=== PATIENT | female | born 1950 | race Caucasian/White ===

== ENCOUNTER → 2018-06-23 | Outpatient (CLI) | payer MEDICARE | LOC: GMAM 11:20 | PROVIDERS: ATTEND Family Medicine | DX: E53.8 Deficiency of other specified B group vitamins (principal); E55.9 Vitamin D deficiency, unspecified ==

== ENCOUNTER → 2018-08-01 | Outpatient (CLI) | payer MEDICARE ==
--- NOTE | 2018-08-01 16:55 | CT ---
EXAM DESCRIPTION: Abdomen/Pelvis w/wo Contrast: Computed Tomography. CLINICAL HISTORY: K42.9. History of previous umbilical hernia repair. Periumbilical pain. COMPARISON: CT scan of the abdomen and pelvis without contrast 08/28/2015. TECHNIQUE: Spiral-axial scans at 5 x 5 mm intervals through the abdomen and pelvis before and after Optiray 320 nonionic IV contrast. No oral contrast. Coronal and sagittal 2.0 mm reconstructions. 5 x 5 mm Delayed helical-axial scans, liver through the pubic symphysis. No adverse reactions. Total Exam DLP 3400.92 mGy - cm. This exam was performed according to our departmental CT dose-optimization program which includes automated exposure control, adjustment of the mA and/or kV according to patient size and/or use of iterative reconstruction technique; to reduce radiation dose to as low as reasonably achievable (ALARA). FINDINGS: Lung bases and pleura: Scarring in the inferior lingula. Liver, Stomach, Spleen, Adrenal Glands: Long axis of the right lobe is 19.5 cm. No focal lesions. Minimal dilation of the ducts in the left lobe the left hepatic duct. Stomach and duodenum slightly distended by fluid. Other solid organs are unremarkable. Pancreas, Gallbladder, Ducts: Surgical clips gallbladder fossa. No fluid. Minimal dilation of the common bile duct. Pancreatic duct not dilated with no focal lesions. Kidneys and Ureters: Decreased size of the left kidney and partial cortical thinning. Nonobstructing 3 mm stone in the inferior collecting system of the left kidney. Size of the right kidney is unremarkable. No radiodense stones in, or enlargement of the bilateral ureters. Mesentery: No abnormal density. Aorta: Mild to moderate atherosclerotic calcification. Small Bowel: Negative. Terminal Ileum/Cecum: Unremarkable. Appendix not seen. Normal density of the surrounding fat. Colon: Diffuse fecal material involving almost entire length of the colon. Minimal redundancy of the sigmoid. No complications. Pelvic Organs: Limitation of resolution due to artifact from right total hip arthroplasty. Prostate gland abutting the urinary bladder and the seminal vesicles. No free fluid. Spine and Bony Pelvis: Posterior transpedicular fusion bilaterally L3-L5. Spondylosis L2-3. Levoscoliosis lumbar spine. Diffuse spondylosis included thoracic spine. Moderate arthrosis left hip joint. Minimal widening and air density in the left SI joint. Total hip arthroplasty on the right. Abdominal Wall/Back Soft Tissues: Stable umbilical diastases since the prior study containing no bowel. Approximately 1 cm above the umbilicus is a small intramuscular defect to the right of midline but not containing bowel. Stable since the prior study. IMPRESSION: 1. Umbilical diastases not containing bowel. Small defect 1 cm superior to the right of midline. These findings are stable since the prior study 2015. 2. Post cholecystectomy with no fluid. Dilation of the common bile duct and predominantly left intrahepatic ducts also seen on the prior study. Pancreas is negative. 3. Decreased size of the left kidney with cortical thinning predominantly in the mid and upper pole which was not seen on the prior study. Correlate with clinical history. Stable 3 mm stone inferior left kidney nonobstructing. Right kidney is unremarkable. 4. Posterior bilateral lumbar fusion L3-L5 since the prior study. Right total hip arthroplasty since the prior study. Electronically signed by: Landry Collins MD 08/01/2018 4:53 PM [facility]
== END ==
LOC: LAB.O 11:45
PROVIDERS: ATTEND Surgery
DX: K42.9 Umbilical hernia without obstruction or gangrene (principal); N20.0 Calculus of kidney; Z96.641 Presence of right artificial hip joint; Z90.49 Acquired absence of other specified parts of digestive tract; Z98.1 Arthrodesis status

== ENCOUNTER → 2018-10-06 | Outpatient (CLI) | payer MEDICARE | LOC: GMAM 14:11 | PROVIDERS: ATTEND Family Medicine | DX: E53.8 Deficiency of other specified B group vitamins (principal); E55.9 Vitamin D deficiency, unspecified ==

== ENCOUNTER → 2018-11-08 | Outpatient (CLI) | payer MEDICARE | LOC: LAB.O 14:19 | PROVIDERS: ATTEND Urology | DX: R31.0 Gross hematuria (principal) ==

== ENCOUNTER → 2018-11-10 | Outpatient (CLI) | payer MEDICARE ==
--- NOTE | 2018-11-10 16:48 | CT ---
EXAM DESCRIPTION: CTA Chest: Computed Tomography. CLINICAL HISTORY: PULMONARY EMBOLUS COMPARISON: CT scan of the abdomen and pelvis with IV contrast on the same visit. TECHNIQUE: Spiral-axial scans at 5 x 5 mm intervals through the pulmonary arteries and chest after bolus infusion of IV contrast. Coronal and sagittal 2.0 Mm reconstructions. 10.0 mm PE oblique 3-D reformatted images. No adverse reactions. This exam was performed according to our departmental CT dose-optimization program which includes automated exposure control, adjustment of the mA and/or kV according to patient size and/or use of iterative reconstruction technique; to reduce radiation dose to as low as reasonably achievable (ALARA). FINDINGS: Heart and great vessels: Contrast demonstrates the pulmonary artery system from the main pulmonary artery to the distal bilateral segmental pulmonary artery branches with no filling defects. The distal pulmonary artery branches bilaterally are symmetric in caliber. Smooth contour of the aorta with no aneurysm or stenosis. Proximal brachiocephalic vessels are unremarkable. Small coronary artery calcifications are noted. Lung and airways: A tree-in-bud pattern is noted in the base of the right upper lobe, and right middle lobe. No blebs or bulla. Pleural parenchymal scarring in the left lower lobe and inferior lingula. No abnormal nodules or masses bilaterally. No focal acute infiltrates. Pleura: Thickening on the left including lateral to the left upper lobe. No effusion bilaterally or pneumothorax. Mediastinum and elena: Minimal artifact streaking caused by dense contrast in the great vessels. No significantly enlarged lymph nodes and no soft tissue masses. No calcifications. Soft tissues of the chest wall, neck base, and axilla: Normal sized lymph nodes. No soft tissue masses. Small thyroid gland. Osseous structures: Decreased bone density. Thoracic dextroscoliosis. Multiple levels of spondylosis. Left first rib is either rudimentary or has been previously resected posteriorly at the level of the medial clavicle. No other rib abnormalities are noted. IMPRESSION: 1. Minimal tree-in-bud pattern noted in the periphery of the right upper lobe and right middle lobe related to a variety of etiologies but most likely prior viral pneumonitis. Less likely related to fungal or mycobacterial pneumonia aspiration, or sarcoidosis. 2. Asymmetric pleural thickening more on the left than the right with no effusion. Electronically signed by: Landry Collins MD 11/10/2018 4:45 PM CDT
--- NOTE | 2018-11-10 17:08 | CT ---
EXAM DESCRIPTION: Abdomen/Pelvis w/wo Contrast: Computed Tomography. CLINICAL HISTORY: GROSS HEMATURIA COMPARISON: CTA of the chest on the same visit. CT Scan abdomen and pelvis with and without IV contrast 08/01/2018. TECHNIQUE: Spiral-axial scans at 5 x 5 mm intervals through the abdomen and pelvis before and after 100 mL Optiray 320 nonionic IV contrast. No oral contrast. Coronal and sagittal 2.0 mm reconstructions. 5 mm Delayed helical-axial scans, liver through the pubic symphysis. No adverse reactions. Total Exam DLP 2456 mGy - cm. This exam was performed according to our departmental CT dose-optimization program which includes automated exposure control, adjustment of the mA and/or kV according to patient size and/or use of iterative reconstruction technique; to reduce radiation dose to as low as reasonably achievable (ALARA). FINDINGS: Liver, Stomach, Spleen, Adrenal Glands: Distended distal hepatic ducts but otherwise negative. Pancreas, Gallbladder, Ducts: Surgical clips in the gallbladder fossa with no fluid. Common bile duct distended. Pancreas unremarkable. Minimal duodenal distention by fluid.. Kidneys and Ureters: 2.6 mm nonobstructing radiodense stone in the inferior collecting system of the left kidney. Bilateral cortical thinning more on the left than the right with more lobulation of the renal capsule on the left than the right. Right kidney is larger. No hydronephrosis bilaterally. Minimal perinephric stranding bilaterally symmetric. Distal ureters bilaterally do not fill with IV contrast but are normal caliber. Mesentery: No stranding or fascial thickening. No free air or ascites. Aorta: Minimal atherosclerotic calcification and normal caliber and no periaortic mass. Small Bowel: Negative. Terminal Ileum/Cecum: Unremarkable. Appendix not seen. Colon: Moderate amount of fecal material throughout the colon mostly ascending colon and distally. Minimal redundancy of the sigmoid colon. Pelvic Organs: Vaginal cuff unremarkable. Stable. No radiodense stones in the urinary bladder. Delayed images were not obtained. Spine and Bony Pelvis: Posterior fusion construct L3-L5. Stable. Spondylosis lower thoracic and upper lumbar spine with levoscoliosis. Air density in the bilateral SI joints with bilateral facets showing sclerosis and subchondral radiolucencies more on the left. Right total hip arthroplasty stable since the prior study. Arthrosis in the left hip joint unchanged. Abdominal Wall/Back Soft Tissues: Diastases of the umbilicus is unchanged since the prior study. Again noted is small defect in the anterior abdominal wall raphe to the right of midline just above the umbilicus with no mesenteric or bowel herniation. IMPRESSION: 1. Again noted is cortical atrophy of the left kidney and decreased size compared to the right kidney. Stable nonobstructing less than 3 mm stone in the inferior left kidney with no hydronephrosis bilaterally. Ureters unremarkable. No radiodense stones in the urinary bladder. No delayed images were obtained. Consider cystogram or cystoscopy to evaluate bladder mucosa in light of this history. 2. Stable appearance of the abdominal wall, thoracic and lumbar spine since the prior study. Electronically signed by: Landry Collins MD 11/10/2018 5:05 PM CDT
== END ==
LOC: CT 08:30
PROVIDERS: ATTEND Family Medicine
DX: R06.02 Shortness of breath (principal); J92.9 Pleural plaque without asbestos; N20.0 Calculus of kidney; R31.0 Gross hematuria; R10.11 Right upper quadrant pain

== ENCOUNTER 2019-04-12 14:26 | Inpatient (IN) | payer MEDICARE ==
--- NOTE | 2019-04-12 14:27 | HP ---
SUPERVISING PHYSICIAN: Manolo Dempsey M.D. CHIEF COMPLAINT: Nausea, vomiting and diarrhea. HISTORY OF PRESENT ILLNESS: This is a 68 year-old female patient who has had about 5 to 6 months of chronic abdominal pain. She was actually diagnosed with gastroparesis by her GI doctor, Dr. Prieto in [place]. He had actually put her on some Reglan. Over the last week or so she has had nausea, vomiting and diarrhea that has worsened. She was in her primary care physician's office earlier this week to have an evaluation. At that time he put her on mag citrate which usually has helped in the past. She was unable to tolerate anything orally. She was unable to keep the mag citrate down.. She saw Dr. Encarnacion today in the office and she continued to have nausea, vomiting and diarrhea that has worsened since 2 days ago and he called for direct admission to the hospital. The patient was a direct admission from Dr. Encarnacion's office for gastroparesis failed outpatient therapy with nausea, vomiting and diarrhea secondary to gastroparesis. It is to be noted that she was also treated for a urinary tract infection in February and has a history of recurrent urinary tract infections. PAST MEDICAL HISTORY: 1. Coronary artery disease. 2. Hyperlipidemia. 3. Hypertension on medications. 4. Chronic obstructive pulmonary disease. 5. Recurrent urinary tract infections. 6. Cerebrovascular accident with mild right sided weakness in 2009. 7. Seizure disorder although the patient has had no seizure activity for many years. 8. Remote history of diabetes mellitus type 2, although she is no longer on medications. 9. Gastroparesis diagnosed about 6 months ago. PAST SURGICAL HISTORY: 1. Appendectomy. 2. Cholecystectomy. 3. Hysterectomy. 4. Left total knee arthroplasty. 5. Bladder suspension. 6. Bilateral cataract removal. 7. Parotid gland tumor removal. 8. Three right hip surgeries after a fracture. 9. Spinal surgery. 10. Left rib removal due to thoracic outlet syndrome. OUTPATIENT MEDICATIONS: Per the EMR and awaiting verification. ALLERGIES: CODEINE, CELEBREX AND PENICILLIN. FAMILY HISTORY: Positive for colon cancer, prostate cancer, hypertension, type 2 diabetes, coronary artery disease, pancreatic cancer, breast cancer, seizure disorder and hypothyroidism. SOCIAL HISTORY: She is . She has 4 children. She lives in [place]. She has a past history of cigarette smoking but quit in 1984. She denies any ETOH or illicit drug use. REVIEW OF SYSTEMS: GENERAL: Positive for fatigue. Negative for chills or fever. RESPIRATORY: Negative for coughing, wheezing or shortness of breath. CARDIOVASCULAR: Negative for chest pain, palpitations or tachycardia. GASTROINTESTINAL: As per History of Present Illness. MUSCULOSKELETAL: Negative for arthralgias, myalgias or back pain. INTEGUMENT: Negative for lesions or rashes. GENITOURINARY: Negative for hematuria, dysuria,, or polyuria, although she is positive for recurrent and frequent UTIs. NEUROLOGIC: Positive for seizure disorder but has not had a seizure in many years. Negative for headaches or dizziness. PHYSICAL EXAMINATION: VITAL SIGNS: Temperature 98.6, heart rate 54, blood pressure 121/76, respiratory rate 16, O2 sat 96% on room air. GENERAL: This is a 68 year-old female who is lying in her hospital bed. She is in no acute distress. HEENT: Normocephalic and atraumatic. Pupils are equal and reactive. Oropharynx is clear. RESPIRATORY: Essentially clear to auscultation bilaterally. CHEST: There is equal rise and fall of the chest with inspiration and expiration. CARDIOVASCULAR: Regular rate and rhythm. GASTROINTESTINAL: Abdomen is soft. She has mild diffuse tenderness to the epigastric and left upper quadrant areas. It is moderately tender to the right upper quadrant. Bowel sounds are positive. EXTREMITIES: No clubbing, cyanosis or edema. NEUROLOGIC: She is awake, alert and oriented times three. Cranial nerves II- XII are grossly intact. LABORATORY: WBCs are 7.7 with hemoglobin 10.5, hematocrit 31.6. Electrolytes are basically within normal limits. Alkaline phosphatase 34, serum total protein 4.6, albumin 1.9. Urinalysis shows moderate urine blood, large amount of urine leukocyte esterase, greater than 100 urine WBCs and 4+ urine bacteria. Urine culture is pending. RADIOLOGY: There is no radiology to report at this time. ASSESSMENT: 1. Gastroparesis failed outpatient therapy. 2. Nausea, vomiting and diarrhea secondary to #1. 3. Urinary tract infection, recurrent. She was treated for a urinary tract infection in February. 4. Hypertension controlled on medications. 5. Chronic obstructive pulmonary disease. 6. Cerebrovascular accident in 2009 with residual mild right sided weakness. 7. Remote history of seizure disorder. PLAN: I have admitted the patient to the hospital. I will place her on bowel rest and give her gentle IV fluids overnight. Will do stool studies for any diarrhea. Rocephin will be started for urinary tract infection and will monitor cultures. I have also given her IV Reglan and will increase her Reglan in the morning if she tolerates the lower dose. I will repeat her labs in the morning as well as an abdominal x-ray. She had a CT of her abdomen several days ago and I will do a sonogram in the morning. I may consult general surgery for recommendations of her care. I have ordered Albuterol nebulizer treatments as needed. Will continue to monitor closely and follow as needed. #[id number] [facility]
[2019-04-12] MEDS ORDERED: SODIUM CHLORIDE 0.9% (FLUSH) 10 ML SYG IV PRN (15:13)
[2019-04-12] MEDS ORDERED: ONDANSETRON INJ 4 MG/2 ML VIAL IV PRN (15:13)
[2019-04-12] MEDS ORDERED: SODIUM CHLORIDE 0.9% 1000ML 1,000 ML IVS PRN (15:13)
[2019-04-12] MEDS ORDERED: IV SET AND CAP CHANGE INJ INJ SCH (15:30)
[2019-04-12] MEDS ORDERED: METOCLOPRAMIDE HCL INJ 10 MG/2 ML VIAL IV SCH (15:30)
[2019-04-12] MEDS: PANTOPRAZOLE SODIUM IV 40 MG VIAL IV SCH (16:45)
[2019-04-12] MEDS ORDERED: HALOPERIDOL LACTATE INJ 5 MG/ML VIAL IM PRN (19:18)
[2019-04-12] MEDS ORDERED: ALBUTEROL SULFATE 2.5 MG/3 ML VIAL NEB PRN (19:54)
[2019-04-12] MEDS: METOCLOPRAMIDE HCL INJ 10 MG/2 ML VIAL IV SCH (20:32)
[2019-04-12] MEDS ORDERED: SODIUM CHL 0.9% 50ML MIN-BAG+ 50 ML IVPB ONE (20:35)
[2019-04-12] MEDS ORDERED: TOPIRAMATE 25 MG TAB ONE (20:35)
[2019-04-12] MEDS ORDERED: cefTRIAXone SODIUM 1 GM VIAL ONE (20:36)
[2019-04-12] MEDS ORDERED: OXYBUTYNIN CL 5 MG TAB ONE (20:36)
[2019-04-12] MEDS ORDERED: GABAPENTIN 300 MG CAP ONE (20:36)
[2019-04-12] MEDS: cefTRIAXone SODIUM 1 GM in SODIUM CHL 0.9% 50ML MIN-BAG+ 50 ML IVPB SCH (20:40)
[2019-04-12] MEDS: METOPROLOL TARTRATE 25 MG TAB PO SCH (20:40)
[2019-04-12] MEDS: GABAPENTIN 600 MG PO SCH (20:41)
[2019-04-12] MEDS: OXYBUTYNIN 10 MG PO SCH (20:42)
[2019-04-12] MEDS: TOPIRAMATE 150 MG PO SCH (20:44)
[2019-04-12] MEDS: SODIUM CHLORIDE 0.9% (FLUSH) 10 ML SYG IV SCH (20:47)
[2019-04-12] MEDS: MORPHINE SULFATE INJ 10 MG/ML VIAL IV PRN (20:53)
[2019-04-12] MEDS: KCL 20MEQ/D5 1/2NS 1,000 ML IVS PRN (21:17)
[2019-04-13] MEDS: MORPHINE SULFATE INJ 10 MG/ML VIAL IV PRN ×5 (00:51→21:18)
[2019-04-13] MEDS: METOCLOPRAMIDE HCL INJ 10 MG/2 ML VIAL IV SCH ×4 (01:40→19:41)
[2019-04-13] MEDS: KCL 20MEQ/D5 1/2NS 1,000 ML IVS PRN ×3 (05:21→22:53)
[2019-04-13] MEDS: PANTOPRAZOLE SODIUM IV 40 MG VIAL IV SCH (06:38)
--- NOTE | 2019-04-13 06:43 | RAD ---
EXAM: XR Abdomen, 1 View CLINICAL HISTORY: The patient is 68 years old and is Female; n/v TECHNIQUE: Frontal supine view of the abdomen/pelvis. COMPARISON: No relevant prior studies available. FINDINGS: GASTROINTESTINAL TRACT: Distal stool and air are present. Minimal gaseous distention of the bowel within the right abdomen is noted. There is a relative paucity of small bowel gas. No abnormal calcifications or soft tissue masses are seen. BONES/JOINTS: Postsurgical change of the lower lumbar spine is present. Mild degenerative change of the bones is noted. A right hip prosthesis is partially visualized. IMPRESSION: 1. Nonobstructive, nonspecific bowel gas pattern. 2. Relative paucity of small bowel gas which may be secondary to incomplete distention versus fluid-filled loops of bowel. Electronically signed by: Irene Vaughan MD 04/13/2019 6:42 AM CDT
[2019-04-13] MEDS ORDERED: TOPIRAMATE 25 MG TAB ONE (09:00)
[2019-04-13] MEDS ORDERED: FUROSEMIDE 40 MG TAB ONE (09:00)
[2019-04-13] MEDS ORDERED: GABAPENTIN 300 MG CAP ONE (09:00)
--- NOTE | 2019-04-13 09:00 | US ---
EXAM DESCRIPTION: Abdomen,Complete: Ultrasound. CLINICAL HISTORY: abd pain COMPARISON: CT abdomen and pelvis July 2018. TECHNIQUE: Transabdominal scanning: grayscale and Doppler modes.. Technically difficult study due to patient body habitus. FINDINGS: Gallbladder: Cholecystectomy. No fluid in the gallbladder fossa. Nontender with transducer pressure. Common bile duct: 6 mm borderline dilated. Liver: 14.8 cm long axis right lobe. Normal portal vein caliber and hepatopedal flow. No intrahepatic duct dilation. Smooth capsule with no ascites. Pancreas: Normal echogenicity. Duct not seen.. Abdominal aorta: Normal caliber from the proximal segment to the distal bifurcation. IVC: visualized; normal caliber. Spleen normal echogenicity; long axis measurement is 13.3 cm. Right kidney: 10.3 cm long axis. Mid renal cortical thickness 12 mm., Normal echogenicity. No hydronephrosis, no perirenal fluid and no echogenic stones. Left kidney: 8.6 cm long axis. Mid renal cortical thickness 10 mm. Increased cortical echogenicity greater than the liver. Lobulated capsule. No hydronephrosis, no echogenic stones, and no perirenal fluid. 9 mm cyst on the cortex. IMPRESSION: 1. Liver is unremarkable. Common bile duct normal caliber postcholecystectomy. Pancreas negative. Spleen upper normal limits with normal echogenicity. No ascites. 2. Left kidney smaller with thin echogenic cortex and lobular capsule which could be related to intrinsic disease. Right kidney with thin cortex otherwise unremarkable. Electronically signed by: Landry Collins MD 04/13/2019 8:58 AM CDT
[2019-04-13] MEDS ORDERED: CLOPIDOGREL 75 MG TAB ONE (09:01)
[2019-04-13] MEDS ORDERED: METOPROLOL SUCCINATE XL 25 MG TAB PO ONE (09:01)
[2019-04-13] MEDS ORDERED: OXYBUTYNIN CL 5 MG TAB ONE (09:01)
[2019-04-13] MEDS: FUROSEMIDE 40 MG TAB PO SCH (09:12)
[2019-04-13] MEDS: CLOPIDOGREL 75 MG TAB PO SCH (09:12)
[2019-04-13] MEDS: TOPIRAMATE 25 MG TAB PO SCH ×2 (09:13→20:51)
[2019-04-13] MEDS: SODIUM CHLORIDE 0.9% (FLUSH) 10 ML SYG IV SCH ×2 (09:13→20:51)
[2019-04-13] MEDS: GABAPENTIN 300 MG CAP PO SCH ×4 (09:13→20:50)
[2019-04-13] MEDS: TOLTERODINE TARTRATE ER 4 MG CAP PO SCH (09:21)
[2019-04-13] MEDS: METOPROLOL TARTRATE 25 MG TAB PO SCH ×2 (09:21→20:49)
[2019-04-13] MEDS: POTASSIUM GLUCONATE 595 MG PO SCH (09:22)
[2019-04-13] MEDS: TOPIRAMATE 150 MG PO SCH (09:30)
[2019-04-13] MEDS: GABAPENTIN 600 MG PO SCH (09:30)
[2019-04-13] MEDS: OXYBUTYNIN 10 MG PO SCH (09:30)
--- NOTE | 2019-04-13 11:48 | CT ---
EXAM DESCRIPTION: Abdomen/Pelvis w/wo Contrast: Computed Tomography. CLINICAL HISTORY: gastroparesis pain COMPARISON: Abdominal ultrasound and abdominal radiograph on this visit. Abdominal pelvic CT scan with IV contrast 11/10/2018. TECHNIQUE: Spiral-axial scans at 5 x 5 mm intervals through the abdomen and pelvis before and after 85 mL Optiray 320 nonionic IV contrast. No oral contrast. Coronal and sagittal 2.0 mm reconstructions. 5 mm Delayed helical-axial scans, liver through the pubic symphysis. No adverse reactions. Total Exam DLP 3534.38 mGy - cm. This exam was performed according to our departmental CT dose-optimization program which includes automated exposure control, adjustment of the mA and/or kV according to patient size and/or use of iterative reconstruction technique; to reduce radiation dose to as low as reasonably achievable (ALARA). FINDINGS: Lung bases and pleura: Pleural parenchymal scarring left base. Stable. Liver, Stomach, Spleen, Adrenal Glands: Dilated intrahepatic biliary ducts slightly more since the prior study. No focal lesions. Mild enlargement of the right lobe of the liver is stable. Minimal distention of the stomach. Surgical clip near the gastroesophageal junction was also seen previously. Pancreas, Gallbladder, Ducts: Surgical clips in the gallbladder fossa. No fluid. Common bile duct 8 mm which is enlarged since the prior study. Pancreas negative. Kidneys and Ureters: Atrophy and lobulation of the left kidney which is smaller than the right kidney also with thinner cortex. 3 mm radiodense stone in the inferior kidney slightly enlarged since the prior study. No hydronephrosis. Right kidney and ureters unremarkable. Mesentery: No stranding free air or free fluid. Aorta: Moderate atherosclerotic calcifications. Small Bowel: Minimal fluid and air without distention. Terminal Ileum/Cecum: Normal caliber and appendix not seen. Colon: Fluid in the ascending colon and minimal gas and fluid in the remainder of the colon. Small diverticula in the sigmoid descending colon junction. No complications. Pelvic Organs: Streak artifact from right hip arthroplasty. No free fluid. No radiodense stones in the urinary bladder. Spine and Bony Pelvis: Marked levoscoliosis with posterior fusion construct L3-L5, bilateral pedicle screws and unilateral connecting rods. No complications. Spondylosis in the upper lumbar spine and multiple levels of the thoracic spine with ankylosis. Arthrosis in the bilateral SI joints more on the left with degenerative air in the joint space. Right total hip arthroplasty with no bony complications in the acetabulum.. Abdominal Wall/Back Soft Tissues: Diastases at the umbilicus not containing bowel. Stable since the prior study. IMPRESSION: 1. Slight increased distention of the intrahepatic biliary ducts and the common bile duct since the prior study. No ascites. No abdominal or pelvic mass. 2. Stable left renal atrophy and parenchymal disease. 3 mm stone in the inferior collecting system is enlarged. No hydronephrosis. 3. Diverticulosis in the distal colon stable. Spondylosis, lumbar fusion hardware and right total hip arthroplasty that is visualized along with right acetabulum stable since the prior study. Electronically signed by: Landry Collins MD 04/13/2019 11:46 AM CDT
--- NOTE | 2019-04-13 13:25 | PN ---
SUPERVISING PHYSICIAN: Manolo Dempsey MD DATE: 04/13/19 SUBJECTIVE: The patient is lying in bed. She is asleep. She awakens easily. She has had no diarrhea, no complaints of nausea or vomiting although she still has complaints of right upper quadrant abdominal pain. She denies shortness of breath or chest pain. OBJECTIVE: VITAL SIGNS: Temperature 98.4. Heart rate 65. Blood pressure 100/62. Respiratory rate 17. O2 saturation 94% on room air. RESPIRATORY: Essentially clear to auscultation bilaterally, somewhat diminished at the bases. CARDIAC: Regular rate and rhythm. GASTROINTESTINAL: Abdomen is soft, nondistended. It is moderately tender in the right upper quadrant. Bowel sounds are positive. NEUROLOGIC: Awake, alert and oriented times three. LABORATORY: WBCs 6.5, hemoglobin 9.9, hematocrit 30. Electrolytes are basically within normal limits with the exception of her calcium slightly low at 7.8. AST high at 60. Urine culture is pending. Abdominal x-ray shows 1) Nonobstructive, nonspecific bowel gas pattern. 2) Relative paucity of small bowel gas which may be due to incomplete distention vs fluid-filled loops of bowel. Abdominal ultrasound shows 1) Liver is unremarkable. Common bile duct normal caliber. Post cholecystectomy. Pancreas is negative. Spleen upper normal limits with normal echogenicity. 2) Left kidney smaller with thin echogenic cortex and lobular capsule which could be related to intrinsic disease. Right kidney with thin cortex, otherwise unremarkable. Her CT of the abdomen is pending. All other labs and films have been reviewed via the EMR. ASSESSMENT: 1. Gastroparesis, failed outpatient therapy. 2. Nausea, vomiting and diarrhea, secondary to #1. 3. Urinary tract infection, recurrent. She was treated for a urinary tract infection in February. 4. Hypertension, controlled on medications. 5. Chronic obstructive pulmonary disease without exacerbation. 6. Cerebrovascular accident in 2009 with residual mild right sided weakness. 7. Remote history of seizure disorder. PLAN: We will continue present supportive care. We will continue to monitor her urine cultures. I have consulted Dr. Johnson in regards to her gastroparesis and we will follow his recommendations as far as her diet and treatment plan. I ordered lab and an abdominal x-ray for in the morning. She will need to have close followup with her GI doctor, Dr. Prieto, at some point. We will continue to monitor the patient closely and follow as needed. #[id number] [facility]
[2019-04-13] MEDS ORDERED: SODIUM CHL 0.9% 50ML MIN-BAG+ 50 ML IVPB ONE (19:02)
[2019-04-13] MEDS ORDERED: cefTRIAXone SODIUM 1 GM VIAL ONE (19:03)
[2019-04-13] MEDS: cefTRIAXone SODIUM 1 GM in SODIUM CHL 0.9% 50ML MIN-BAG+ 50 ML IVPB SCH (20:48)
[2019-04-14] MEDS: METOCLOPRAMIDE HCL INJ 10 MG/2 ML VIAL IV SCH ×4 (01:59→19:59)
[2019-04-14] MEDS: MORPHINE SULFATE INJ 10 MG/ML VIAL IV PRN ×3 (05:07→19:03)
[2019-04-14] MEDS: PANTOPRAZOLE SODIUM IV 40 MG VIAL IV SCH (06:32)
[2019-04-14] MEDS: KCL 20MEQ/D5 1/2NS 1,000 ML IVS PRN (06:32)
--- NOTE | 2019-04-14 06:54 | RAD ---
EXAM: XR Abdomen, 2 Views CLINICAL HISTORY: The patient is 68 years old and is Female; abd pain TECHNIQUE: Frontal view of the abdomen/pelvis with upright view of the abdomen. COMPARISON: Abdominal radiograph from 04/13/2019 FINDINGS: LOWER THORAX: The visualized lower lungs are clear. INTRAPERITONEAL SPACE: No obvious free air. GASTROINTESTINAL TRACT: Few air-fluid levels noted in the proximal colon. No significant bowel dilatation visualized to suggest obstruction. ORGANS: Surgical clips visualized projecting over the right upper quadrant, likely related to prior cholecystectomy. Small left intrarenal stone noted. BONES/JOINTS: Moderate thoracolumbar scoliosis. Postsurgical changes of the lower lumbar spine. 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 IMPRESSION: No acute findings. Electronically signed by: Angela Hollins MD 04/14/2019 6:52 AM CDT
[2019-04-14] MEDS: SODIUM CHLORIDE 0.9% (FLUSH) 10 ML SYG IV SCH ×2 (08:42→20:06)
[2019-04-14] MEDS: TOPIRAMATE 25 MG TAB PO SCH ×2 (08:42→19:59)
[2019-04-14] MEDS: GABAPENTIN 300 MG CAP PO SCH ×4 (08:43→19:59)
[2019-04-14] MEDS: METOPROLOL TARTRATE 25 MG TAB PO SCH ×2 (08:43→19:59)
[2019-04-14] MEDS: TOLTERODINE TARTRATE ER 4 MG CAP PO SCH (08:43)
[2019-04-14] MEDS: FUROSEMIDE 40 MG TAB PO SCH (08:43)
[2019-04-14] MEDS: CLOPIDOGREL 75 MG TAB PO SCH (08:44)
[2019-04-14] MEDS: POTASSIUM GLUCONATE 595 MG PO SCH (08:44)
[2019-04-14] MEDS ORDERED: MAGNESIUM SULFATE PREMIX 2GM 2 GM in PREMIX BAG 1 BAG IVPB ONE (11:01)
[2019-04-14] MEDS ORDERED: MAGNESIUM SULFATE PREMIX 2GM 50 ML IVPB ONE (11:09)
--- NOTE | 2019-04-14 18:58 | PN ---
DATE: 04/14/19 SUPERVISING PHYSICIAN: Manolo Dempsey M.D. SUBJECTIVE: The patient is lying in bed. She finished her clear liquid diet earlier today and has had no complaints of nausea, vomiting and diarrhea. No chest pain or shortness of breath. Her is at the bedside. We discussed her diet and recommendations at length as well as her discharge planning. OBJECTIVE: VITAL SIGNS: Temperature 98.7, heart rate 80, blood pressure 130/76, respiratory rate 18, O2 sat 94% on room air. RESPIRATORY: Essentially clear to auscultation bilaterally. CARDIAC: Regular rate and rhythm. GASTROINTESTINAL: Abdomen is soft, nondistended, non-tender. Bowel sounds are positive. NEUROLOGIC: She is awake, alert and oriented times three. LABORATORY: WBCs are 5.1 with hemoglobin and hematocrit that are stable at 11.4 and 35.2. Electrolytes are basically within normal limits with the exception of her magnesium which is slightly low at 1.7, calcium is slightly low at 8. Liver enzymes are within normal limits. Urine culture is pending. Abdominal x-ray shows no acute findings. All other labs and films have been reviewed via the EMR. ASSESSMENT: 1. Gastroparesis, failed outpatient therapy. 2. Nausea, vomiting and diarrhea, secondary to #1. 3. Urinary tract infection, recurrent. She was treated for a urinary tract infection in February. 4. Hypertension, controlled on medications. 5. Chronic obstructive pulmonary disease without exacerbation. 6. Cerebrovascular accident in 2009 with residual mild right sided weakness. 7. Remote history of seizure disorder. PLAN: We will continue present supportive care. I have advanced her diet. She has tolerated her clear liquids and she will have full liquids tonight. Hopefully she can have a bland regular diet in the morning. We discussed her diet at discharge and I have given her some handouts in regard to that diet. I have discontinued her IV fluids. Will continue with her Rocephin and continue to monitor for her urine cultures. I have also given her some magnesium supplementation and I will repeat her lab in the morning. Hopefully she can be discharged tomorrow with close followup with Dr. Encarnacion, her primary care physician, as well as Dr. Prieto, her GI doctor next week. Otherwise will continue to monitor closely and follow as needed. [id number]
[2019-04-14] MEDS ORDERED: SODIUM CHL 0.9% 50ML MIN-BAG+ 50 ML IVPB ONE (18:59)
[2019-04-14] MEDS ORDERED: cefTRIAXone SODIUM 1 GM VIAL ONE (18:59)
[2019-04-14] MEDS: cefTRIAXone SODIUM 1 GM in SODIUM CHL 0.9% 50ML MIN-BAG+ 50 ML IVPB SCH (20:04)
[2019-04-15] MEDS: METOCLOPRAMIDE HCL INJ 10 MG/2 ML VIAL IV SCH ×2 (02:29→08:24)
[2019-04-15] MEDS: PANTOPRAZOLE SODIUM IV 40 MG VIAL IV SCH (05:49)
[2019-04-15] MEDS: TOLTERODINE TARTRATE ER 4 MG CAP PO SCH (08:25)
[2019-04-15] MEDS: GABAPENTIN 300 MG CAP PO SCH (08:25)
[2019-04-15] MEDS: FUROSEMIDE 40 MG TAB PO SCH (08:25)
[2019-04-15] MEDS: CLOPIDOGREL 75 MG TAB PO SCH (08:25)
[2019-04-15] MEDS: TOPIRAMATE 25 MG TAB PO SCH (08:26)
[2019-04-15] MEDS: SODIUM CHLORIDE 0.9% (FLUSH) 10 ML SYG IV SCH (08:26)
[2019-04-15] MEDS: POTASSIUM GLUCONATE 595 MG PO SCH (08:26)
[2019-04-15] MEDS: METOPROLOL TARTRATE 25 MG TAB PO SCH (08:28)
[2019-04-15] MEDS ORDERED: MAGNESIUM SULFATE PREMIX 2GM 2 GM in PREMIX BAG 1 BAG IVPB ONE (08:43)
[2019-04-15] MEDS ORDERED: MAGNESIUM SULFATE PREMIX 2GM 50 ML IVPB ONE (08:50)
[2019-04-15] MEDS ORDERED: HYDROcodone 5MG/APAP 325MG 1 EA TAB PO PRN (09:00)
[2019-04-15 10:10] VITALS: BP 102/61; TEMP 98; O2SAT 97
[2019-04-15] MEDS ORDERED: cefTRIAXone SODIUM 1 GM in SODIUM CHL 0.9% 50ML MIN-BAG+ 50 ML IVPB ONE (10:29)
[2019-04-15] MEDS ORDERED: cefTRIAXone SODIUM 1 GM VIAL ONE (10:55)
[2019-04-15] MEDS ORDERED: SODIUM CHL 0.9% 50ML MIN-BAG+ 50 ML IVPB ONE (10:55)
[2019-04-15] MEDS ORDERED: METOCLOPRAMIDE HCL 5 MG TAB PO SCH (11:30)
--- NOTE | 2019-04-15 21:41 | DS ---
SUPERVISING PHYSICIAN: Manolo Dempsey M.D. DISCHARGE DIAGNOSIS: 1. Gastroparesis, failed outpatient therapy. 2. Nausea, vomiting and diarrhea, secondary to #1 that has resolved. 3. Urinary tract infection, recurrent. She was treated for a urinary tract infection in February. 4. Hypertension, controlled on medications. 5. Chronic obstructive pulmonary disease without exacerbation. 6. Cerebrovascular accident in 2009 with mild residual right sided weakness. 7. Remote history of seizure disorder. HISTORY OF PRESENT ILLNESS: This is a 68 year-old female patient who has had about 5 to 6 months of chronic abdominal pain. She was actually diagnosed with gastroparesis by her GI doctor, Dr. Prieto in [place]. He put her on some Reglan. Over the last week or so she has had nausea, vomiting and diarrhea that has worsened. She saw her primary care physician several times this week for evaluation of the nausea and vomiting. Initially he put her on mag citrate which usually has helped her in the past but she was unable to tolerate anything orally. She was unable to keep the mag citrate down or any of her other medications. She continued to have nausea, vomiting and diarrhea and Dr. Encarnacion wanted her to be directly admitted to the hospital. She was admitted to the hospital for gastroparesis failed outpatient therapy and nausea, vomiting and diarrhea. HOSPITAL COURSE: The patient was admitted to the hospital and put on bowel rest. Labs were drawn and she was given IV fluids. Stool cultures were done. Urinalysis showed she had a urinary tract infection. She was given Rocephin for the UTI. She was also placed on a proton pump inhibitor for ulcer prophylaxis as well as IV Reglan. A CT of the abdomen and sonogram were also obtained as well as consulting Dr. Liam Johnson, general surgeon to rule out any surgical issues. Her nausea and vomiting subsided. Her diet was slowly advanced. She tolerated that without problems. Her home medications were restarted. She also tolerated those without problems. Dr. Johnson saw her and suggested that she follow a gluten free, no added sugar, no processed food diet and actually gave her a handout for those foods. I also talked to her about the diet. We also discussed it at length. She has tolerated her previously mentioned diet as well as her medications. There has been nausea or vomiting for over 36 hours. She will be discharged home today in stable condition with close followup with her primary care physician, Dr. Encarnacion. LABORATORY: White count remains stable between 5.1 and 7.7 with hemoglobin and hematocrit that have stabilized to 11.4 and 35.2. Electrolytes have basically been within normal limits with the exception of her calcium was slightly low at 8 and magnesium was 1.7. She received some supplementation and today it is 1.6, and she has also received supplementation today. AST was elevated at one time up to 60 but today it is 34. Stool for occult blood was positive. Stool culture is pending. Urine culture is pending. She was negative for C- Difficile. Stool also was positive for fecal leukocytes. RADIOLOGY: Initial abdominal x-ray showed: 1. Nonobstructive nonspecific bowel gas pattern. 2. Relative paucity of small bowel gas which may be secondary to incomplete distention versus fluid-filled loops of bowel. Yesterday her abdominal x- ray showed no acute findings. Initial abdominal ultrasound showed: 1. Liver is unremarkable, common bile duct normal caliber post cholecystectomy. Pancreas is negative. Spleen upper normal limits with normal echogenicity. No ascites. 2. Left kidney smaller with thin echogenic cortex and lobular capsule which could be related to intrinsic disease. Right kidney with thin cortex, otherwise unremarkable. Abdomen and pelvis CT showed: 1. Slight increased distention of the intrahepatic biliary duct and the common bile duct since the prior study. No ascites. No abdominal or pelvic mass. 2. Stable left renal atrophy and parenchymal disease. 3 mm stone in the inferior collecting system is enlarged. No hydronephrosis. 3. Diverticulosis in the distal colon that is stable. Spondylosis. Lumbar fusion hardware and right total hip arthroplasty that is visualized along with the right acetabulum, stable since prior study. All other labs and films have been reviewed via the EMR. DISCHARGE PLAN: The patient will be discharged home today in stable condition. She is to resume her previous activity as well as her previous medications. She is to follow the diet as recommended by Dr. Johnson. In addition to her routine medications, including her Reglan, she is to continue with 7 day of Cefdinir for her urinary tract infection. It is recommended that at her followup appointment that her stool culture and urine culture be reviewed. She has a followup appointment with Dr. Benigno Encarnacion on 04/17/19 at 2:45 PM. She is to return to the hospital or call Dr. Encarnacion's office for any problems or complications. DISCHARGE MEDICATIONS: 1. Potassium gluconate. 2. Plavix. 3. Furosemide. 4. Dexilant. 5. Fenofibrate. 6. [place]. 7. Gabapentin. 8. Oxybutynin. 9. Topamax. 10. Diclofenac. 11. Metoprolol. 12. Cefdinir. 13. Reglan. [facility][id number]
== END 2019-04-15 11:50 | disposition home or self-care (01) | DRG 392 ==
LOC: MS 14:26
PROVIDERS: ADMIT Nurse Practitioner Acute Care; ATTEND Nurse Practitioner Acute Care
PROC: BW2110Z Computerized Tomography (CT Scan) of Abdomen and Pelvis using Low Osmolar Contrast, Unenhanced and Enhanced (ICD-10-PCS; principal; 2019-04-13)
DX: K31.84 Gastroparesis (principal); N39.0 Urinary tract infection, site not specified; I69.351 Hemiplegia and hemiparesis following cerebral infarction affecting right dominant side; E83.42 Hypomagnesemia; I10 Essential (primary) hypertension; J44.9 Chronic obstructive pulmonary disease, unspecified; G40.909 Epilepsy, unspecified, not intractable, without status epilepticus; I25.10 Atherosclerotic heart disease of native coronary artery without angina pectoris; E78.5 Hyperlipidemia, unspecified; Z86.39 Personal history of other endocrine, nutritional and metabolic disease; Z96.652 Presence of left artificial knee joint; Z88.5 Allergy status to narcotic agent; Z88.6 Allergy status to analgesic agent; Z88.0 Allergy status to penicillin; Z87.891 Personal history of nicotine dependence; Z79.899 Other long term (current) drug therapy

== ENCOUNTER → 2019-04-19 | Outpatient (CLI) | payer MEDICARE ==
--- NOTE | 2019-04-19 15:59 | US ---
EXAM DESCRIPTION: Extremity,Lower RT Arteries: Ultrasound. CLINICAL HISTORY: ABNORMAL RESULT OF OTHER CARDIOVASCULAR FUNCTION STUDY COMPARISON: CT scan, radiographs, and ultrasound of abdomen in March 2019. TECHNIQUE: Doppler evaluation of the right lower extremity arterial flow waveforms and velocities. FINDINGS: Arterial waveforms in the right lower extremity are triphasic from the right common femoral artery through the right dorsalis pedis artery.. Comments: Velocities are unremarkable except for elevated velocity in the distal right CROSSING GUARD which could indicate an early stenosis. IMPRESSION: Doppler evaluation of the right lower extremity arterial systems showing no evidence of atherosclerotic occlusive disease. Elevated velocity in the distal right CROSSING GUARD with normal waveform. Electronically signed by: Landry Collins MD 04/19/2019 3:58 PM CDT
== END ==
LOC: US 09:30
PROVIDERS: ATTEND Family Medicine
DX: R94.39 Abnormal result of other cardiovascular function study (principal)

== ENCOUNTER → 2019-04-30 | Outpatient (CLI) | payer MEDICARE ==
--- NOTE | 2019-05-01 20:04 | MAM ---
EXAM DESCRIPTION: 3D Screening BILATERAL : Digital Mammography. CLINICAL HISTORY: 68 years Female ANNUAL SCREENING . No complaints. No personal history of breast cancer. Mother with breast cancer at age 55 and sister with breast cancer at age 45. This sister and mother also have ovarian cancer. Remote family history of ovarian cancer. Lifetime risk of developing breast cancer (Tyrer-Cuzick model)(%): 30.3. COMPARISON: 2-D digital screening bilateral mammography 02/05/2015.. TECHNIQUE: Bilateral CC and MLO projection full-field images, digital tomosynthesis mammographic technique. Bilateral digital 2-D full-field MLO images. CAD not available for tomosynthesis or 2-D images. FINDINGS: The breast parenchymal density pattern is: Scattered areas of fibroglandular density. No skin thickening or nipple retraction. Bilateral vascular calcifications and solitary calcifications. Right axillary lymph node. No new focal, stellate mass or density, focal asymmetry , and no suspicious microcalcifications bilaterally. Stable mammograms compared to prior study. Taking into account, differences in mammographic technique. IMPRESSION: Benign exam. BIRAD CATEGORY: 2 BENIGN FINDINGS. RECOMMENDATIONS: FOLLOW UP: Routine digital bilateral mammographic screening, one year interval from April 2019. Due to high risk evaluation number, consideration should be made for bilateral breast MRI scan, without and with gadolinium IV contrast. Please see below Written communication explaining the IMPRESSION and follow-up, will be mailed to the patient and referring health care provider. According to the [employer], yearly mammograms are recommended starting at age 40 and continuing as long as a woman is in good health. Any breast change noted on a breast self-exam should be reported promptly to the patient's healthcare provider. Breast MRI is recommended for women with an approximately 20-25% or greater lifetime risk of breast cancer, including women with a strong family history of breast or ovarian cancer and women who have been treated for Hodgkin's disease. A negative mammographic report should not delay tissue diagnosis in patients with significant clinical history or physical findings. Extremely dense breast tissue limits the sensitivity of digital mammography. Electronically signed by: Landry Collins MD 05/01/2019 8:03 PM CDT
== END ==
LOC: MAMMO 15:46
PROVIDERS: ATTEND Family Medicine
DX: Z12.31 Encounter for screening mammogram for malignant neoplasm of breast (principal)

== ENCOUNTER 2019-05-08 09:07 | Observation (INO) | payer MEDICARE ==
[2019-05-08] MEDS ORDERED: SODIUM CHLORIDE 0.9% 1000ML 1,000 ML IVS ONE (09:27)
[2019-05-08] MEDS ORDERED: MORPHINE SULFATE INJ 10 MG/ML VIAL IV ONE ×2 (09:27→11:52)
[2019-05-08] MEDS ORDERED: ONDANSETRON INJ 4 MG/2 ML VIAL IV ONE ×2 (09:27→11:49)
--- NOTE | 2019-05-08 09:41 | ED.PDOC ---
History of Present Illness - General Chief Complaint: Abdominal Pain Time Seen by Provider: 05/08/19 09:20 - History of Present Illness Initial Comments: 68 yo F PMH HTN HL multiple comorbidities pt of Dr. Encarnacion presents to ED at bedside c/o abdominal pain nausea vomiting no blood intermittently x 2 weeks. Pt. recently admitted and d/c from [facility] for same was scheduled to do outpatient labs today but 'never made it' Denies fever chills admits nausea vomiting diarrhea unable to take or hold down PO medications, no blood, also admits chest pain denies sob diaphoresis symptoms decrease appetite and disturb rest also c/o dysuria denies drinking or smoking admits FH HTN DM no other c/o today. Review of Systems - Review of Systems Constitutional: States: malaise EENTM: States: see HPI Respiratory: States: see HPI Cardiology: States: chest pain Gastrointestinal/Abdominal: States: abdominal pain, diarrhea, nausea, vomiting Genitourinary: States: dysuria Musculoskeletal: States: see HPI Skin: States: no symptoms reported Neurological: States: no symptoms reported Endocrine: States: no symptoms reported All other Systems: Reviewed and Negative Past Medical History (General) - Patient Medical History Hx Seizures: Yes - 6 yuear ago Hx Stroke: Yes - 6 yrs ago Hx Asthma: Yes Hx of COPD: Yes Hx Cardiac Disorders: No Hx Congestive Heart Failure: No Hx Pacemaker: No Hx Hypertension: Yes Hx Diabetes: Yes - diabetic Hx MRSA: Yes - Social History Hx Alcohol Use: No Hx Substance Use: No Hx Physical Abuse: No Hx Emotional Abuse: No Family Medical History - Family History Mother Family History: No Known Living Status: Hx Family Asthma: Yes Hx Family Congestive Heart Failure: No Hx Family Hypertension: Yes Hx Family Stroke: Yes Hx Cardiac Disease: Yes Hx Family Diabetes: Yes Hx Family Cancer: No Physical Exam - Physical Exam General Appearance: Other - uncomfortable Eyes, Ears, Nose, Throat Exam: normal ENT inspection Neck: non-tender, full range of motion Respiratory: normal breath sounds Cardiovascular/Chest: regular rate, rhythm, tachycardia Gastrointestinal/Abdominal: soft, tenderness - diffuse Rectal Exam: deferred Back Exam: normal inspection Extremity: normal range of motion, non-tender Neurologic: no motor/sensory deficits Skin Exam: normal color Progress - Progress Progress: 05/08/19 09:44 A/P-Chest Pain, Abdominal Pain Nausea Vomiting Diarrhea, Inability to Tolerate PO, Dehydration- 1.iv bolus morphine zofran urinalysis urine culture blood culturesx2 cbc cmp lipase trop ekg cxr ct abdomen pelvis clindamycin reassess 05/08/19 12:02 Laboratory Tests 05/08/19 05/08/19 05/08/19 09:40 09:40 09:40 WBC 11.4 H RBC 4.38 Hgb 12.9 Hct 40.7 MCV 92.9 MCH 29.6 MCHC 31.8 L RDW 14.7 H Plt Count 433 H MPV 8.7 Absolute Neuts (auto) 8.80 H Absolute Lymphs (auto) 1.20 Absolute Monos (auto) 1.00 H Absolute Eos (auto) 0.40 Absolute Basos (auto) 0.10 Neutrophils % 76.7 Lymphocytes % 10.8 L Monocytes % 8.4 Eosinophils % 3.2 Basophils % 0.9 Sodium 139 Potassium 3.9 Chloride 106 Carbon Dioxide 20 L Anion Gap 16.9 BUN 19 H Creatinine 1.08 BUN/Creatinine Ratio 17.6 Random Glucose 124 H Serum Osmolality 281.2 Lactic Acid Calcium 10.4 H Total Bilirubin 0.7 AST 14 ALT 12 Alkaline Phosphatase 43 Troponin I < 0.02 Serum Total Protein 6.0 L Albumin 2.4 L Globulin 3.6 H Albumin/Globulin Ratio 0.7 L Lipase 28 05/08/19 09:40 WBC RBC Hgb Hct MCV MCH MCHC RDW Plt Count MPV Absolute Neuts (auto) Absolute Lymphs (auto) Absolute Monos (auto) Absolute Eos (auto) Absolute Basos (auto) Neutrophils % Lymphocytes % Monocytes % Eosinophils % Basophils % Sodium Potassium Chloride Carbon Dioxide Anion Gap BUN Creatinine BUN/Creatinine Ratio Random Glucose Serum Osmolality Lactic Acid 1.0 Calcium Total Bilirubin AST ALT Alkaline Phosphatase Troponin I Serum Total Protein Albumin Globulin Albumin/Globulin Ratio Lipase 05/08/19 12:29 EXAM DESCRIPTION: Chest,1 View CLINICAL HISTORY: 68 years Female, pain vomiting COMPARISON: None available. TECHNIQUE: AP radiograph of the chest was obtained. FINDINGS: Trachea is midline.The cardiomediastinal silhouette is normal in size. The pulmonary vasculature is within normal limits.The lungs are clear with no acute consolidation.No evidence of pleural effusions. IMPRESSION: No acute cardiopulmonary process. Electronically signed by: Mary Phan MD 05/08/2019 9:[address] ABDOMEN PELVIS WITH IV CONTRAST HISTORY: 68 years Female pain vomiting COMPARISON: April 13, 2019. TECHNIQUE: Helical tomographic images of the abdomen and pelvis were obtained after the intravenous administration of 100 cc of Isovue-370. Coronal and sagittal reformatted images were also provided. This exam was performed according to our departmental dose-optimization program, which includes automated exposure control, adjustment of the mA and/or kV according to patient size and/or use of iterative reconstruction technique. FINDINGS: Beam hardening artifact from right hip are the plasty hardware limits evaluation of the pelvis. Included thorax: No acute process detected. Liver: Unremarkable. Gallbladder and biliary ducts: Gallbladder is surgically absent. Mild intrahepatic and extra hepatic biliary ductal dilatation. Duodenal diverticulum is demonstrated adjacent to the ampulla. Pancreas: Unremarkable. Spleen: Unremarkable. Adrenal glands: Unremarkable. Kidneys and ureters: Subcentimeter hypoattenuating lesions in bilateral kidneys are too small to ad equately characterize but statistically likely represents simple cysts. 2 mm nonobstructive calculus is present in the lower pole of the left kidney. Multifocal cortical thinning is demonstrated in the left kidney, suggesting prior insult. Ureters appear decompressed. Distal ureters are partially secured secondary to beam hardening artifact. Urinary bladder: Predominantly obscured. Reproductive organs: Uterus is not seen and may be absent. No adnexal mass detected within the limits of this exam. Bowel: Focal dilatation is demonstrated in both the first and second portions of the duodenum. No obstructing stricture or mass is identified by CT. Multiple duodenal diverticula are present. A few scattered colonic diverticula are seen. No focal bowel wall thickening observed. Lymph nodes: No lymphadenopathy detected. Peritoneal cavity: No free intraperitoneal fluid or free air detected. Vessels: There are scattered atherosclerotic changes noted. Abdominal wall: No acute process detected. Bones: No acute process detected. Multilevel degenerative changes seen in the included spine. L3-L5 fusion and right hip arthroplasty changes noted. IMPRESSION: Focal dilatation demonstrated in both the first and second portions of the duodenum, without evidence of obstructing stricture or mass by CT. Multiple duodenal diverticula, one of which arises adjacent to the ampulla. There is mild intrahepatic and extrahepatic biliary ductal dilatation observed, which may indicate a degree of biliary obstruction. This could also represent physiologic reservoir effect status post cholecystectomy. Additional incidental findings as discussed. Electronically signed by: Jeovanny Brito MD 05/08/2019 11:04 AM CDT 05/08/19 12:31 05/08/19 14:10 Laboratory Tests 05/08/19 05/08/19 05/08/19 09:40 09:40 09:40 WBC 11.4 H RBC 4.38 Hgb 12.9 Hct 40.7 MCV 92.9 MCH 29.6 MCHC 31.8 L RDW 14.7 H Plt Count 433 H MPV 8.7 Absolute Neuts (auto) 8.80 H Absolute Lymphs (auto) 1.20 Absolute Monos (auto) 1.00 H Absolute Eos (auto) 0.40 Absolute Basos (auto) 0.10 Neutrophils % 76.7 Lymphocytes % 10.8 L Monocytes % 8.4 Eosinophils % 3.2 Basophils % 0.9 Sodium 139 Potassium 3.9 Chloride 106 Carbon Dioxide 20 L Anion Gap 16.9 BUN 19 H Creatinine 1.08 BUN/Creatinine Ratio 17.6 Random Glucose 124 H Serum Osmolality 281.2 Lactic Acid Calcium 10.4 H Total Bilirubin 0.7 AST 14 ALT 12 Alkaline Phosphatase 43 Troponin I < 0.02 Serum Total Protein 6.0 L Albumin 2.4 L Globulin 3.6 H Albumin/Globulin Ratio 0.7 L Lipase 28 Urine Color Urine Appearance Urine pH Ur Specific [place] Urine Protein Urine Glucose (UA) Urine Ketones Urine Blood Urine Nitrite Urine Bilirubin Urine Urobilinogen Ur Leukocyte Esterase Urine RBC Urine WBC Ur Epithelial Cells Urine Bacteria 05/08/19 05/08/19 05/08/19 09:40 11:55 13:29 WBC RBC Hgb Hct MCV MCH MCHC RDW Plt Count MPV Absolute Neuts (auto) Absolute Lymphs (auto) Absolute Monos (auto) Absolute Eos (auto) Absolute Basos (auto) Neutrophils % Lymphocytes % Monocytes % Eosinophils % Basophils % Sodium Potassium Chloride Carbon Dioxide Anion Gap BUN Creatinine BUN/Creatinine Ratio Random Glucose Serum Osmolality Lactic Acid 1.0 Calcium Total Bilirubin AST ALT Alkaline Phosphatase Troponin I < 0.02 Serum Total Protein Albumin Globulin Albumin/Globulin Ratio Lipase Urine Color Yellow Urine Appearance Sl cloudy Urine pH 6.0 Ur Specific [place] 1.010 Urine Protein 30 Urine Glucose (UA) Negative Urine Ketones Negative Urine Blood Moderate H Urine Nitrite Negative Urine Bilirubin Negative Urine Urobilinogen 0.2 Ur Leukocyte Esterase Small H Urine RBC 3-5 H Urine WBC >50 H Ur Epithelial Cells 3-5 Urine Bacteria Rare On reassessment pt still in pain and unable to tolerate PO with abdominal pain dehydration, will ADMIT for further observation called Sadi arcos neg x 2 05/08/19 14:21 Sadi Olivares accepts - Results/Orders Results/Orders: EKG-non specific TW changes Sinus Tachycardia motion artifiact Departure - Departure Clinical Impression: Nausea vomiting and diarrhea, Dehydration Chest pain Qualifiers: Chest pain type: unspecified Qualified Code(s): R07.9 - Chest pain, unspecified Abdominal pain Qualifiers: Abdominal location: generalized Qualified Code(s): R10.84 - Generalized abdominal pain Time of Disposition: 14:24 Disposition: Admit Patient Condition: Fair Departure Forms: ED Discharge - Pt. Copy, Patient Portal Self Enrollment Instructions: DI for Abdominal Pain-Adult Referrals: Benigno Encarnacion MD [Primary Care Provider] - 1-2 Weeks Home Medications: Ambulatory Orders Dexilant 60 mg PO DAILY 04/12/19 Diclofenac W/ Misoprostol [Arthrotec 75 75-0.2 mg] 1 tab PO QPM 04/12/19 Fenofibrate 48 mg PO DAILY 04/12/19 Furosemide 20 mg PO QAM 04/12/19 Gabapentin 600 mg PO QID 04/12/19 Metoprolol Tartrate 12.5 mg PO BID 04/12/19 [place] 5/325 1 tablet PO BID 04/12/19 Oxybutynin 10 mg PO BID 04/12/19 Plavix 75 mg PO DAILY 04/12/19 Potassium Gluconate 595 mg PO DAILY 04/12/19 Topiramate [Topamax] 150 mg PO BID 04/12/19 Cefdinir 300 mg PO BID #14 capsule 04/15/19 Metoclopramide Tab [Reglan Tab] 10 mg PO ACHS tab 04/15/19 Decision To Admit - Decistion To Admit Decision to Admit Date: 05/08/19 Decision to Admit Time: 14:21
[2019-05-08] MEDS ORDERED: CLINDAMYCIN INJ (VIAL) 600 MG in SODIUM CHLORIDE 0.9% 50ML 50 ML IVPB ONE (09:46)
--- NOTE | 2019-05-08 09:59 | RAD ---
EXAM DESCRIPTION: Chest,1 View CLINICAL HISTORY: 68 years Female, pain vomiting COMPARISON: None available. TECHNIQUE: AP radiograph of the chest was obtained. FINDINGS: Trachea is midline.The cardiomediastinal silhouette is normal in size. The pulmonary vasculature is within normal limits.The lungs are clear with no acute consolidation.No evidence of pleural effusions. IMPRESSION: No acute cardiopulmonary process. Electronically signed by: Mary Phan MD 05/08/2019 9:57 AM CDT
[2019-05-08] MEDS ORDERED: CLINDAMYCIN PHOSPHATE 150 MG/ML VIAL ONE (10:08)
[2019-05-08] MEDS ORDERED: SODIUM CHLORIDE 0.9% 50ML 50 ML ONE (10:08)
--- NOTE | 2019-05-08 11:05 | CT ---
CT ABDOMEN PELVIS WITH IV CONTRAST HISTORY: 68 years Female pain vomiting COMPARISON: April 13, 2019. TECHNIQUE: Helical tomographic images of the abdomen and pelvis were obtained after the intravenous administration of 100 cc of Isovue-370. Coronal and sagittal reformatted images were also provided. This exam was performed according to our departmental dose-optimization program, which includes automated exposure control, adjustment of the mA and/or kV according to patient size and/or use of iterative reconstruction technique. FINDINGS: Beam hardening artifact from right hip are the plasty hardware limits evaluation of the pelvis. Included thorax: No acute process detected. Liver: Unremarkable. Gallbladder and biliary ducts: Gallbladder is surgically absent. Mild intrahepatic and extra hepatic biliary ductal dilatation. Duodenal diverticulum is demonstrated adjacent to the ampulla. Pancreas: Unremarkable. Spleen: Unremarkable. Adrenal glands: Unremarkable. Kidneys and ureters: Subcentimeter hypoattenuating lesions in bilateral kidneys are too small to adequately characterize but statistically likely represents simple cysts. 2 mm nonobstructive calculus is present in the lower pole of the left kidney. Multifocal cortical thinning is demonstrated in the left kidney, suggesting prior insult. Ureters appear decompressed. Distal ureters are partially secured secondary to beam hardening artifact. Urinary bladder: Predominantly obscured. Reproductive organs: Uterus is not seen and may be absent. No adnexal mass detected within the limits of this exam. Bowel: Focal dilatation is demonstrated in both the first and second portions of the duodenum. No obstructing stricture or mass is identified by CT. Multiple duodenal diverticula are present. A few scattered colonic diverticula are seen. No focal bowel wall thickening observed. Lymph nodes: No lymphadenopathy detected. Peritoneal cavity: No free intraperitoneal fluid or free air detected. Vessels: There are scattered atherosclerotic changes noted. Abdominal wall: No acute process detected. Bones: No acute process detected. Multilevel degenerative changes seen in the included spine. L3-L5 fusion and right hip arthroplasty changes noted. IMPRESSION: Focal dilatation demonstrated in both the first and second portions of the duodenum, without evidence of obstructing stricture or mass by CT. Multiple duodenal diverticula, one of which arises adjacent to the ampulla. There is mild intrahepatic and extrahepatic biliary ductal dilatation observed, which may indicate a degree of biliary obstruction. This could also represent physiologic reservoir effect status post cholecystectomy. Additional incidental findings as discussed. Electronically signed by: Jeovanny Brito MD 05/08/2019 11:04 AM CDT
[2019-05-08] MEDS ORDERED: metroNIDAZOLE IV PREMIX 500MG 500 MG in PREMIX BAG 1 BAG IVPB ONE (14:15)
[2019-05-08] MEDS ORDERED: metroNIDAZOLE IV PREMIX 500MG 100 ML IVPB ONE ×2 (14:21→14:23)
--- NOTE | 2019-05-08 15:10 | HP ---
SUPERVISING PHYSICIAN: Manolo Dempsey M.D. CHIEF COMPLAINT: Abdominal pain. HISTORY OF PRESENT ILLNESS: This is a 68 year-old female who came into the Emergency Room with current abdominal pain. Apparently she has had some nausea and vomiting along with some diffuse abdominal pain for the last 2 weeks or so. She was actually just admitted for the same and a review of that record shows that it seems to possibly be due to gastroparesis. She was started on some Reglan and actually did better, and was discharged to followup with her GI specialist. However, further information says that she has been taking 1/2 tab of the Reglan because she says it makes her mean and her , in fact, threw it away for that reason. They state that Dr. Encarnacion was going to try something else for her but they do not know the name of this. Anyhow, when she came into the E. R. her workup included a CT scan of the abdomen and pelvis as well as some labs. CT scan of the abdomen and pelvis did not show any acute surgical indictions. It did show focal dilatation of the first and second portions of the duodenum without evidence of obstructing strictures or mass. It showed multiple duodenal diverticula, mild intrahepatic and extrahepatic biliary ductal dilatation which may indicate a degree of biliary obstruction. She has already had a cholecystectomy as well. Labs done showed a white count of11.4, hemoglobin stable at 12.9, platelet count 433. Sodium 139, potassium 3.9, chloride 106, CO2 20, BUN 19, creatinine 1.08, glucose 124, calcium 10.4, albumin 2.4. Lactic acid 1.0. I did cardiac markers which were negative at 0.2 times 2 different occasions. She was referred for admission for her abdominal pain. Upon examination, the patient states she is still hurting. She got some morphine in the Emergency Room but it has worn off. I reviewed the CAT scan myself and it shows that she still has stool in her colon. In reading the previous record, Dr. Johnson, the surgeon, was actually consulted and recommendations were for gluten free, no sugar, no processed food diet. She also already had an abdominal ultrasound in March of the last admission which was unremarkable. PAST MEDICAL HISTORY: 1. Coronary artery disease. 2. Hyperlipidemia. 3. Hypertension. 4. Chronic obstructive pulmonary disease. 5. Recurrent urinary tract infections. 6. Cerebrovascular accident. 7. Seizure disorder. 8. Remote history of diabetes mellitus type 2. 9. Gastroparesis diagnosed 6 months ago. PAST SURGICAL HISTORY: 1. Appendectomy. 2. Cholecystectomy. 3. Hysterectomy. 4. Left total knee arthroplasty. 5. Bladder suspension. 6. Bilateral cataract removal. 7. Parotid gland tumor removal. 8. Three right hip surgeries after a fracture. 9. Spinal surgery. 10. Left rib removal due to thoracic outlet syndrome. OUTPATIENT MEDICATIONS: Please see the computerized medication reconciliation record. ALLERGIES: CODEINE, CELEBREX AND PENICILLIN. FAMILY HISTORY: Positive for colon cancer, prostate cancer, hypertension, type 2 diabetes mellitus, coronary artery disease, pancreatic cancer, breast cancer, seizure disorder and hypothyroidism. SOCIAL HISTORY: She is . She has 4 children. She lives in [place]. She has a history of cigarette smoking but quit approximately 25 years ago. No alcohol and no illicit drugs. REVIEW OF SYSTEMS: CONSTITUTIONAL: No fever or chills. No recent weight loss or weight gain. HEENT: No headaches, vision changes, ear pain, nasal congestion or throat pain. RESPIRATORY: No cough, hemoptysis or pleuritic chest pain. CARDIOVASCULAR: No chest pain, palpitations or peripheral edema. GASTROINTESTINAL: Positive for some nausea, vomiting and abdominal pain. No diarrhea. No constipation. Currently she states her bowel movements are normal, but she has had some issues with both diarrhea and constipation in the past. GENITOURINARY: No dysuria, frequency or flank pain. MUSCULOSKELETAL: No joint pain, joint swelling or muscle cramps. SKIN: No rashes, lesions or wounds. HEMATOLOGIC: No easy bruising or transfusion reaction. ENDOCRINE: No polydipsia, polyuria or polyphagia. No heat or cold intolerance. NEUROLOGIC: No seizures or paresthesias. PHYSICAL EXAMINATION: VITAL SIGNS: Blood pressure 114/78, heart rate 93, respiratory rate 16, temperature 98.2, oxygen saturation 96%. GENERAL: Ms. Bearden is a 68 year-old female who is in no active distress currently. CHEST: Lungs are diminished in the bases but otherwise clear to auscultation bilaterally. CARDIOVASCULAR: Regular rate and rhythm . Normal S1 and S2. ABDOMEN: Soft. Positive bowel sounds. Her abdomen is obese. She says she has some diffuse abdominal tenderness mainly in the left upper and right upper quadrants. The lower quadrants are not as painful. GENITOURINARY: Exam is deferred. EXTREMITIES: Lower extremities with no significant edema. NEUROLOGIC: The patient is alert and oriented. LABORATORY: Labs and films discussed in the history of present illness. ASSESSMENT: 1. Abdominal pain. 2. Dehydration secondary to excessive nausea and vomiting. 3. Acute kidney injury secondary to #2. 4. Hypertension. 5. Chronic obstructive pulmonary disease with no exacerbation. PLAN: The patient will be admitted to the hospital for recurrent abdominal pain. This is observation status. Will start her back on IV Reglan until she can take p.o. appropriately. Additionally will give her some pain medicines until the pain improves. I will give her some IV fluids as well. Will need to investigation whether or not there are other medications she can take other than Reglan as she states she cannot really tolerate the p.o. Reglan at home. The hospital does not have any erythromycin IV so cannot use that as an acute fix for the issue. Really all of the diagnostics have already been done. CT scan is pretty much unremarkable as well as the sonogram. She has already had a surgical evaluation. 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 Will treat the acute issue and plan on discharging later tomorrow afternoon or on . #[id number] MTDD
[2019-05-08] MEDS ORDERED: SODIUM CHLORIDE 0.9% (FLUSH) 10 ML SYG IV PRN (15:54)
[2019-05-08] MEDS ORDERED: IV SET AND CAP CHANGE INJ INJ SCH (16:00)
[2019-05-08] MEDS: ONDANSETRON INJ 4 MG/2 ML VIAL IV PRN (16:28)
[2019-05-08] MEDS: ENOXAPARIN SODIUM 40 MG/0.4 ML SYG SUBCU SCH (16:28)
[2019-05-08] MEDS: LACTATED RINGERS 1,000 ML IVS PRN (16:28)
[2019-05-08] MEDS: MORPHINE SULFATE INJ 10 MG/ML VIAL IV PRN (16:29)
[2019-05-08] MEDS: METOCLOPRAMIDE HCL INJ 10 MG/2 ML VIAL IV SCH ×2 (16:29→22:55)
[2019-05-09] MEDS: MORPHINE SULFATE INJ 10 MG/ML VIAL IV PRN ×2 (03:08→06:30)
[2019-05-09] MEDS: LACTATED RINGERS 1,000 ML IVS PRN ×2 (04:10→15:40)
[2019-05-09] MEDS: METOCLOPRAMIDE HCL INJ 10 MG/2 ML VIAL IV SCH ×3 (04:14→17:29)
[2019-05-09] MEDS: ONDANSETRON INJ 4 MG/2 ML VIAL IV PRN (06:34)
[2019-05-09] MEDS ORDERED: POTASSIUM GLUCONATE 595 MG PO SCH (10:45)
[2019-05-09] MEDS ORDERED: HYDROcodone 5MG/APAP 325MG 1 EA TAB ONE (11:29)
[2019-05-09] MEDS: PANTOPRAZOLE SODIUM TAB 40 MG PO SCH (11:32)
[2019-05-09] MEDS: HYDROcodone 5MG/APAP 325MG 1 EA TAB PO SCH ×2 (11:32→20:31)
[2019-05-09] MEDS: GABAPENTIN 300 MG CAP PO SCH ×3 (11:32→20:30)
[2019-05-09] MEDS: CLOPIDOGREL 75 MG TAB PO SCH (11:32)
[2019-05-09] MEDS: FENOFIBRIC ACID 135 MG CAP PO SCH (11:33)
[2019-05-09] MEDS: METOPROLOL TARTRATE 25 MG TAB PO SCH ×2 (11:34→20:30)
[2019-05-09] MEDS: TOPIRAMATE 25 MG TAB PO SCH ×2 (11:36→20:31)
--- NOTE | 2019-05-09 13:55 | PN ---
SUPERVISING PHYSICIAN: Manolo Dempsey MD DATE: 05/09/19 SUBJECTIVE: The patient states she really has not had any nausea and vomiting since she has been here. She has been able to hold down clear liquids so far. She still complains of intermittent abdominal pain. OBJECTIVE: VITAL SIGNS: Blood pressure 114/72. Heart rate 75. Respiratory rate 18. Temperature 98.6. Oxygen saturation 97%. GENERAL: Ms. Bearden is a 68-year-old who is in no severe distress at this time. NEUROLOGIC: Alert and oriented, somewhat confused, but I believe this is probably her baseline. LUNGS: Clear to auscultation bilaterally. CARDIOVASCULAR: Regular rate and rhythm. Normal S1, S2. ABDOMEN: Soft. Positive bowel sounds. There is some tenderness to palpation that mainly centers around the epigastric region, but no rebound tenderness. GENITOURINARY: Deferred. EXTREMITIES: Lower extremities with no edema. Pulses 2+. Capillary refill is less than 2 seconds. LABORATORY: She had some labs today which showed white count 6.1, hemoglobin 10.5, platelet count 288. Chemistry was completely normal. ASSESSMENT: 1. Abdominal pain, likely secondary to her chronic gastroparesis. 2. Dehydration secondary to excessive nausea and vomiting. 3. Acute kidney injury, now resolved. 4. Hypertension. 5. Chronic obstructive pulmonary disease with no exacerbation. PLAN: At this point, we are going to trial her on Linzess. I spoke with Dr. Encarnacion about this and he agrees that we can try and see if this works for her. This is pretty much a chronic issue. If we can control her nausea and vomiting, we can discharge her and let her see her boston cutter again. She states she has had a bowel movement since she has been here. She does not see how she can still have stool in her colon as she has had plenty of bowel movements over the last week ago. However, once again, CT scan does show she does have some stool in her colon. We will see how the Linzess does and try to avoid any excessive narcotic administration. #[id number] MTDD
[2019-05-09] MEDS: ENOXAPARIN SODIUM 40 MG/0.4 ML SYG SUBCU SCH (17:28)
[2019-05-09] MEDS ORDERED: DICLOFENAC SODIUM 75 MG TAB PO SCH (18:00)
[2019-05-09] MEDS ORDERED: miSOPROStol 100 MCG TAB PO SCH (18:00)
[2019-05-09] MEDS: OXYBUTYNIN CL 5 MG TAB PO SCH (20:30)
[2019-05-10 04:17] VITALS: TEMP 98.3
[2019-05-10] MEDS: HYDROcodone 5MG/APAP 325MG 1 EA TAB PO SCH (08:42)
[2019-05-10] MEDS: CLOPIDOGREL 75 MG TAB PO SCH (08:42)
[2019-05-10] MEDS: GABAPENTIN 300 MG CAP PO SCH (08:43)
[2019-05-10] MEDS: OXYBUTYNIN CL 5 MG TAB PO SCH (08:43)
[2019-05-10] MEDS: PANTOPRAZOLE SODIUM TAB 40 MG PO SCH (08:44)
[2019-05-10] MEDS: FENOFIBRIC ACID 135 MG CAP PO SCH (08:44)
[2019-05-10] MEDS: METOPROLOL TARTRATE 25 MG TAB PO SCH (08:45)
[2019-05-10] MEDS: TOPIRAMATE 25 MG TAB PO SCH (08:45)
[2019-05-10] MEDS ORDERED: POTASSIUM CHLORIDE 10 MEQ TAB PO SCH (09:00)
[2019-05-10] MEDS ORDERED: FUROSEMIDE 40 MG TAB PO SCH (09:00)
[2019-05-10 15:16] VITALS: BP 104/65; O2SAT 95
--- NOTE | 2019-05-16 18:57 | DS ---
SUPERVISING PHYSICIAN: Manolo Dempsey M.D. ADMISSION DIAGNOSIS: 1. Abdominal pain. 2. Dehydration secondary to excessive nausea and vomiting. 3. Acute kidney injury secondary to #2. 4. Hypertension. 5. Chronic obstructive pulmonary disease with no exacerbation. DISCHARGE DIAGNOSIS: 1. Abdominal pain, likely due to chronic gastroparesis. 2. Acute cystitis secondary to Klebsiella pneumoniae with the patient having no reported symptoms. 3. Acute kidney injury back to baseline levels. 4. Hypertension. 5. Chronic obstructive pulmonary disease with no exacerbation. REASON FOR HOSPITALIZATION: This is a 68 year-old female who came into the Emergency Room with current abdominal pain. Apparently she has had some nausea and vomiting along with some diffuse abdominal pain for the last 2 weeks or so. She was actually just admitted for the same and a review of that record shows that it seems to possibly be due to gastroparesis. She was started on some Reglan and actually did better, and was discharged to followup with her GI specialist. However, further information says that she has been taking 1/2 tab of the Reglan because she says it makes her mean and her , in fact, threw it away for that reason. They state that Dr. Encarnacion was going to try something else for her but they do not know the name of this. Anyhow, when she came into the E. R. her workup included a CT scan of the abdomen and pelvis as well as some labs. CT scan of the abdomen and pelvis did not show any acute surgical indictions. It did show focal dilatation of the first and second portions of the duodenum without evidence of obstructing strictures or mass. It showed multiple duodenal diverticula, mild intrahepatic and extrahepatic biliary ductal dilatation which may indicate a degree of biliary obstruction. She has already had a cholecystectomy as well. Labs done showed a white count of11.4, hemoglobin stable at 12.9, platelet count 433. Sodium 139, potassium 3.9, chloride 106, CO2 20, BUN 19, creatinine 1.08, glucose 124, calcium 10.4, albumin 2.4. Lactic acid 1.0. I did cardiac markers which were negative at 0.2 times 2 different occasions. She was referred for admission for her abdominal pain. Upon examination, the patient states she is still hurting. She got some morphine in the Emergency Room but it has worn off. I reviewed the CAT scan myself and it shows that she still has stool in her colon. In reading the previous record, Dr. Johnson, the surgeon, was actually consulted and recommendations were for gluten free, no sugar, no processed food diet. She also already had an abdominal ultrasound in March of the last admission which was unremarkable. LABORATORY STUDIES: WBC on admission was 11,400, hemoglobin 12.9 and 40.7, at discharge WBCs were 6,100, hemoglobin 10.5, hematocrit 32.9, platelet count 288,000. Differential showed to be without a left shift. Chemistries on discharge were all within normal limits. Calcium 8.6, lactic acid 1.0. She had 2 troponins less than 0.02. Urinalysis revealed a moderate amount of blood, small amount of leukocyte esterase, RBCs were 3 to 5, greater than 50 WBCs with 3 to 5 epithelials and rare bacteria. MICROBIOLOGY: Urine culture showed Klebsiella pneumoniae that was sensitive to all but Nitrofurantoin and Ampicillin. Blood cultures are negative after 5 days. RADIOLOGY: She had an abdominal/pelvis CT which showed focal dilation demonstrated in both the first and second portions of the duodenum without any evidence of obstructing stricture or mass. There was note of multiple duodenal diverticula, one of which arises adjacent to the ampulla. There is mild intrahepatic and extrahepatic biliary ductal dilation observed which may indicate a degree of biliary obstruction or it could represent physiologic reservoir effect status post cholecystectomy. Please see that report for details. She had a chest x-ray and per radiology interpretation showed no acute cardiopulmonary process. She had an EKG which showed sinus tachycardia at [address] or T wave changes to note acute ischemia. HOSPITAL COURSE: Ms. Bearden was admitted for nausea and vomiting secondary to gastroparesis complication. She was started on fluids. Initially she was given a dose of Clindamycin and Metronidazole. This was not continued as it was felt that it was not a bacterial infection but more related to gastroparesis. The patient was started on Linzess which did result in having a bowel movement and the patient felt it was helping her in regards to her nausea and vomiting. She did have a urine that was collected that was sent for culture but the patient was reporting no acute symptoms. It did grow out Klebsiella pneumoniae as noted above. She was not started on antibiotics at discharge. It was felt that she was clinically stable enough to continue with outpatient management and to followup with Dr. Encarnacion. PHYSICAL EXAMINATION ON DISCHARGE: VITAL SIGNS: Temperature 98.3, pulse 85, blood pressure 104/65, respirations 16, satting 95% on room air. GENERAL: The patient is resting comfortably. She was alert. CHEST: Clear to auscultation. HEART: Regular rate and rhythm. ABDOMEN: Soft, non-tender. Positive bowel sounds. EXTREMITIES: Without any edema. NEUROLOGIC: She is alert and oriented times three. PLAN: Ms. Bearden was discharge on 05/10/19 with instructions to followup with Dr. Encarnacion in 1 to 2 weeks or sooner if needed. She will resume her home medications as instructed and take new prescriptions as directed, including Linzess which she got samples from the clinic. She was told to return to the hospital should she have any concerning symptoms. Diet on discharge was regular diet as tolerated. Activity is to increase as tolerated. Medications on discharge included Linzess 145 mcg daily. Samples provided to be refilled by Dr. Encarnacion as needed. The rest of her medications were resumed as prior to hospitalization to include: 1. Topamax. 2. Potassium gluconate. 3. Plavix. 4. Oxybutynin. 5. Pegram 5/325. 6. Metoprolol. 7. Gabapentin. 8. Lasix. 9. Fenofibrate. 10. Arthrotec. 11. Dexilant. DISPOSITION: The patient was discharge home. Condition on discharge was stable and improved. #[id number] MTDD
== END 2019-05-10 12:20 | disposition home or self-care (01) ==
LOC: ER 09:07 → MS 15:08
PROVIDERS: ADMIT Nurse Practitioner; ATTEND Nurse Practitioner Family
DX: E86.0 Dehydration (principal); N17.9 Acute kidney failure, unspecified; R10.84 Generalized abdominal pain; I10 Essential (primary) hypertension; J44.9 Chronic obstructive pulmonary disease, unspecified; E11.43 Type 2 diabetes mellitus with diabetic autonomic (poly)neuropathy; K31.84 Gastroparesis; I25.10 Atherosclerotic heart disease of native coronary artery without angina pectoris; E78.5 Hyperlipidemia, unspecified; G40.909 Epilepsy, unspecified, not intractable, without status epilepticus; K57.10 Diverticulosis of small intestine without perforation or abscess without bleeding; Z86.73 Personal history of transient ischemic attack (TIA), and cerebral infarction without residual deficits; Z87.440 Personal history of urinary (tract) infections; Z96.652 Presence of left artificial knee joint; Z90.49 Acquired absence of other specified parts of digestive tract; Z90.710 Acquired absence of both cervix and uterus; Z88.0 Allergy status to penicillin; Z88.6 Allergy status to analgesic agent; Z88.8 Allergy status to other drugs, medicaments and biological substances; Z87.891 Personal history of nicotine dependence; Z80.0 Family history of malignant neoplasm of digestive organs; Z82.49 Family history of ischemic heart disease and other diseases of the circulatory system; Z83.3 Family history of diabetes mellitus
CPT/HCPCS: 96361 ×2; 96367; 96365; 96375; 96376 ×2; 96372 ×2; J3490 ×3; J2765 ×5; J2270 ×5; J2405 ×4; J7030; A4216; J1650 ×3; J7120 ×3; 80048; 80053; 87086; 36415 ×3; 87077; 87186; 81001; 85025 ×2; 87040 ×2; 83690; 84484 ×2; 83605; 71045; 74177; 99285; 93005; G0378

== ENCOUNTER → 2019-05-15 | Outpatient (CLI) | payer MEDICARE | LOC: GMAM 15:25 | PROVIDERS: ATTEND Family Medicine | DX: R10.84 Generalized abdominal pain (principal); R07.9 Chest pain, unspecified ==

== ENCOUNTER → 2019-05-30 | Outpatient (CLI) | payer MEDICARE ==
--- NOTE | 2019-05-31 12:44 | CT ---
EXAM DESCRIPTION: Chest w/o Contrast : Computed Tomography. CLINICAL HISTORY: 69 years Female COPD COMPARISON: CTA chest November 10, 2018. TECHNIQUE: Spiral-axial scans at 5 x 5 mm intervals through the lungs and thorax without IV contrast. 2.5 x 5 mm lung algorithm axial reconstructions. Coronal and sagittal 2.0 Mm reconstructions. No adverse reactions. Total Exam DLP: 450.04 mGy-cm. This exam was performed according to our departmental dose-optimization program which includes automated exposure control, adjustment of the mA and/or kV according to patient size and/or use of iterative reconstruction technique; to reduce radiation dose to as low as reasonably achievable (ALARA). Nodule measurements under 10 mm are given as mean value of 3 axes diameters. FINDINGS: Lungs and large airways: 3 mm semisolid versus groundglass nodule lateral base right upper lobe abutting the horizontal fissure on CT image 4/56. Stable since the prior study. Other densities in the base of the right upper lobe on the prior study are no longer present. Groundglass densities and pleural parenchymal scarring in the inferior lingula with a subpleural 3 mm solid nodule on image 4/54. Also thickening of the preciado of the bronchial and branches to this subsegment. Slightly more dense parenchymal changes since the prior study which may reflect change in technique. Stable thickening of the left major fissure at its base. No abnormal nodules and no mass. No consolidating infiltrate. Pleural spaces: Sporadic thickening especially left base which is stable. Surgical clips abutting the superior anterior lateral pleura of the left upper lobe. Otherwise negative. Mediastinum and Anna: Evaluation limited due to lack of IV contrast cartilage calcification. No enlarged nodes or dominant masses.. Great vessels and Heart: Coronary artery calcification and minimal calcification of the aorta limited due to lack of IV contrast. Soft tissues of neck base, axillae, and chest wall: Evaluation limited due to lack of IV contrast. Vague diffuse soft tissue density seen in the bilateral chest wall and breast stable since the prior study with no focal lesions. Upper abdomen: No free fluid or free air in the included peritoneal space. Surgical clips in the gallbladder fossa with no fluid. Stable appearance of spleen and adrenal glands with atherosclerotic vascular calcifications. Osseous structures: Spondylosis multiple levels of the thoracic spine and vertebral body hemangiomas. Mild dextroscoliosis. Stable since the prior study. Arthrosis right glenohumeral joint. No lytic or blastic lesions. IMPRESSION: 1. Groundglass versus semisolid densities bilaterally with decreasing density and improved volume in the right upper lobe since the prior study. Atelectasis and scarring versus early interstitial infiltrate in the inferior lingula. This could be related to more sensitive technique on this study. 2. [employer] Best Practice recommendations: Multiple pulmonary nodules. Most severe: 3.0 mm ground glass pulmonary nodule within the upper lobe. Recommend a non-contrast Chest CT at 3-6 months. If stable, consider follow-up non-contrast Chest CTs at 2 and 4 years. These guidelines do not apply to immunocompromised patients and patients with cancer. Follow up in patients with significant comorbidities as clinically warranted. For lung cancer screening, adhere to Lung-RADS guidelines. Reference: Radiology. 2017; 284(1):228-43. Electronically signed by: Landry Collins MD 05/31/2019 12:43 PM CDT
== END ==
LOC: CT 10:06
PROVIDERS: ATTEND Internal Medicine
DX: J44.9 Chronic obstructive pulmonary disease, unspecified (principal); R91.8 Other nonspecific abnormal finding of lung field

== ENCOUNTER → 2019-07-15 | Outpatient (CLI) | payer MEDICARE | LOC: SL 19:42 | PROVIDERS: ATTEND Internal Medicine | DX: G47.30 Sleep apnea, unspecified (principal) ==

== ENCOUNTER 2019-08-01 05:39 | Day surgery (SDC) | payer MEDICARE ==
[2019-08-01] MEDS ORDERED: LACTATED RINGERS 1,000 ML ONE (05:47)
[2019-08-01 07:44] VITALS: TEMP 98.4
[2019-08-01 08:54] VITALS: BP 128/84; O2SAT 99
[2019-08-01] MEDS ORDERED: PROPOFOL 200 MG/20 ML VIAL IV ONE (10:00)
[2019-08-01] MEDS ORDERED: LIDOCAINE 1% 10 ML VIAL INJ ONE (10:00)
--- NOTE | 2019-08-01 10:47 | OP ---
DATE OF PROCEDURE: 08/01/19 PREOPERATIVE DIAGNOSIS: 1. Abnormal imaging of the GI tract. 2. Chronic diarrhea. 3. Rule out inflammatory bowel disease. POSTOPERATIVE DIAGNOSIS: 1. Ulceration and erosions in the descending colon. PROCEDURE: 1. Colonoscopy. SURGEON: Destin Kumar MD ANESTHESIA: Monitored anesthesia care. ESTIMATED BLOOD LOSS: Less than 5 mL. COMPLICATIONS: None. PROCEDURE: The patient was placed in the left lateral decubitus position. A time-out was performed. After deep sedation was achieved, the Olympus adult colonoscope was inserted through the anus, into the rectum and advanced to the terminal ileum under direct visualization. The cecum was identified by the ileocecal valve and the appendiceal orifice. Photodocumentation of these locations was performed. The patients bowel preparation was excellent. The procedure was performed without difficulty. The endoscope was then progressively withdrawn and the terminal ileum and total colonic lumen were evaluated. Retroflexion was performed in the rectum. The endoscope was then withdrawn and the procedure terminated. The patient tolerated the procedure well with no immediate complications. FINDINGS: 1. The terminal ileum was unremarkable. No ulceration, stenosis or evidence of inflammation was seen. Biopsies were taken for histology. 2. A few focal areas of erosion and one linear ulceration was seen in the mid descending colon. The ulceration was cleaned-based, linear and noted about 10 mm. Biopsies were taken for histology. 3. The remainder of the colonoscopy exam was unremarkable other than mild diverticulosis in the sigmoid colon. Random colon biopsies were taken to rule out microscopic colitis. 4. Grade 2 non-bleeding internal hemorrhoids were seen upon retroflexion in the rectum. IMPRESSION: 1. One small linear ulceration and a few erosions were seen in the descending colon, biopsied. 2. Mild sigmoid colonic diverticulosis. 3. Small internal hemorrhoids. 4. Otherwise unremarkable colonoscopy exam to the terminal ileum. Random biopsies were taken from both the colon and from the small intestine. RECOMMENDATIONS: 1. Okay to discharge home once the patient meets discharge criteria. 2. Resume prior diet. 3. Resume home medications. 4. Await pathology results. 5. Followup in the GI clinic with Dr. Kumar in 4 weeks. 6. Repeat colonoscopy for screening n 10 years. #[id number] [facility]
== END 2019-08-01 08:47 | disposition home or self-care (01) ==
LOC: AMB 05:39
PROVIDERS: ATTEND Internal Medicine Gastroenterology
DX: K52.9 Noninfective gastroenteritis and colitis, unspecified (principal); K63.3 Ulcer of intestine; K57.30 Diverticulosis of large intestine without perforation or abscess without bleeding; K26.7 Chronic duodenal ulcer without hemorrhage or perforation; K31.5 Obstruction of duodenum; R63.4 Abnormal weight loss; Z88.5 Allergy status to narcotic agent; Z88.0 Allergy status to penicillin; Z91.040 Latex allergy status; Z79.899 Other long term (current) drug therapy
CPT/HCPCS: 00811; 45380; 88305; 88341; 88342; J3490; J7120

== ENCOUNTER → 2019-08-16 | Outpatient (CLI) | payer MEDICARE | LOC: GMAM 14:14 | PROVIDERS: ATTEND Family Medicine | DX: L65.9 Nonscarring hair loss, unspecified (principal); J02.9 Acute pharyngitis, unspecified ==

== ENCOUNTER → 2019-08-20 | Outpatient (CLI) | payer MEDICARE | LOC: GMAM 10:29 | PROVIDERS: ATTEND Family Medicine | DX: L65.9 Nonscarring hair loss, unspecified (principal) ==

== ENCOUNTER → 2019-09-12 | Outpatient (CLI) | payer MEDICARE | LOC: GMAM 14:22 | PROVIDERS: ATTEND Family Medicine | DX: D50.9 Iron deficiency anemia, unspecified (principal) ==

== ENCOUNTER 2019-09-30 09:20 | Emergency (ER) | payer MEDICARE ==
[2019-09-30] MEDS ORDERED: ONDANSETRON INJ 4 MG/2 ML VIAL IV ONE (10:20)
[2019-09-30] MEDS ORDERED: FAMOTIDINE IV PREMIX 20 MG in PREMIX BAG 1 BAG IVPB ONE (10:20)
--- NOTE | 2019-09-30 10:24 | ED.PDOC ---
History of Present Illness - General Chief Complaint: Skin/Abrasion/Tear Stated Complaint: Possible skin irritation Time Seen by Provider: 09/30/19 10:17 Source: patient - History of Present Illness Initial Comments: Pt with h/o low iron got iron infusion yesterday and there was infiltration of the vein and swelling around the site with some brown coloration with iron , pt was given benadryl , elevation of arm , compression bandage to reduce the swelling , today pt is here with the same complain ,that she is having swelling , slight pain , itching and brown discoloration, pt also state that she is having epigastric pain since infusion associated with nausea. No chest pain or sob Severity: mild Improving Factors: other - elevation of hand Worsening Factors: nothing Associated Symptoms: nausea/vomiting Allergies/Adverse Reactions: Allergies Codeine Allergy (Verified 09/30/19 10:19) Latex Allergy (Verified 09/30/19 10:19) Penicillin G Allergy (Verified 09/30/19 10:19) Sulfa Antibiotics Allergy (Verified 09/30/19 10:19) Home Medications: Ambulatory Orders Dexilant 60 mg PO DAILY 04/12/19 Fenofibrate 48 mg PO DAILY 04/12/19 Furosemide 20 mg PO QAM 04/12/19 Gabapentin 600 mg PO QID 04/12/19 Gilbert 5/325 1 tablet PO Q4HR PRN 04/12/19 Potassium Gluconate 595 mg PO DAILY 04/12/19 Albuterol Sulfate Nebs [Proventil Nebs] 2.5 mg INH PRN PRN 07/30/19 Calcium Carbonate (Antacid) [Tums] 600 mg PO PRN PRN 07/30/19 Calcium Carbonate-Vitamin D [Calcium 500 + D] 1 tab PO BID 07/30/19 Cyanocobalamin Inj [Vitamin B-12 Inj] 1,000 mcg IM MONTHLY 07/30/19 Docusate Sodium [Stool Softener] 200 mg PO PRN PRN 07/30/19 Estradiol Vaginal [Estrace] 0.1 mg VA WKLY 07/30/19 Ondansetron HCl [Zofran] 4 mg PO PRN PRN 07/30/19 Polyethylene Glycol 3350 [Miralax] 17 gm PO DAILY 07/30/19 Sumatriptan Succinate [Imitrex] 100 mg PO PRN PRN 07/30/19 Biotin 5,000 mcg SL DAILY 09/30/19 Cholecalciferol [Vitamin D3] 5,000 unit PO BID 09/30/19 Clopidogrel Bisulfate 75 mg PO DAILY 09/30/19 DiphenhydrAMINE HCL [Benadryl] 25 mg PO QID #12 cap 09/30/19 Ondansetron HCl [Zofran] 4 mg PO TID #12 tab 09/30/19 Pantoprazole Tablet [Protonix] 40 mg PO DAILY #10 tab 09/30/19 Prednisone 50 mg PO DAILY #5 tab 09/30/19 Sucralfate 1 gm PO TID 09/30/19 Review of Systems - Review of Systems Constitutional: States: no symptoms reported EENTM: States: no symptoms reported Respiratory: States: no symptoms reported Cardiology: States: no symptoms reported Gastrointestinal/Abdominal: States: see HPI Genitourinary: States: no symptoms reported Musculoskeletal: States: no symptoms reported Skin: States: see HPI Neurological: States: no symptoms reported Endocrine: States: no symptoms reported Hematologic/Lymphatic: States: no symptoms reported Past Medical History (General) - Patient Medical History Hx Seizures: Yes Hx Stroke: Yes Hx Asthma: Yes Hx of COPD: No Hx Cardiac Disorders: No Hx Congestive Heart Failure: No Hx Pacemaker: No Hx Hypertension: Yes Hx Diabetes: No Hx MRSA: No Surgical History: other - Vaccination History Hx Tetanus, Diphtheria Vaccination: Yes Hx Influenza Vaccination: Yes Hx Pneumococcal Vaccination: No - Social History Hx Tobacco Use: Yes Hx Alcohol Use: No Hx Substance Use: No Hx Substance Use Treatment: No Hx Depression: No Hx Physical Abuse: No Hx Emotional Abuse: No - Female History Patient is a Female of Child Bearing Age (10 -59 yrs old): No Patient : No Family Medical History - Family History Mother Family History: No Known Living Status: Hx Family Asthma: Yes Hx Family Congestive Heart Failure: No Hx Family Hypertension: Yes Hx Family Stroke: Yes Hx Cardiac Disease: Yes Hx Family Diabetes: Yes Hx Family Cancer: No Physical Exam - Physical Exam General Appearance: Alert, Comfortable Eye Exam: bilateral normal Ears, Nose, Throat: hearing grossly normal Neck: non-tender, full range of motion, supple, normal inspection Respiratory: lungs clear, normal breath sounds, no respiratory distress, no accessory muscle use Cardiovascular/Chest: regular rate, rhythm, no edema, no gallop Gastrointestinal/Abdominal: soft, tenderness - epigastric Back Exam: normal inspection, no CVA tenderness, no vertebral tenderness Extremity: normal range of motion, non-tender, normal inspection, no pedal edema, swelling - very slight in the R forearm Neurologic: bonding agent II-XII nml as tested, no motor/sensory deficits, alert, normal mood/affect, oriented x 3 Skin Exam: other - brown discoloration of the skin of forearm Lymphatic: no adenopathy Progress - Progress Progress: 09/30/19 12:04 pt again c/o itching in the forearm and still having epigsatric pain , will start protonix and give solu-medrol , plan explained to the pt During the visit saw the pt multiple time answer all the concern of the pt , reviewed labs and X-ray with the pt. Told the pt that if symptoms gets worse , please come back to ER Follow up PCP as soon as possible 10/02/19 22:56 - Results/Orders Results/Orders: 09/30/19 10:49 LIPASE Stat Departure - Departure Clinical Impression: Allergic reaction, Gastritis Time of Disposition: 13:26 Disposition: Discharge to Home or Self Care Condition: Good Departure Forms: ED Discharge - Pt. Copy, Patient Portal Self Enrollment Instructions: DI for Abrasion Diet: resume usual diet Activity: increase activity as tolerated, walking as tolerated Referrals: Benigno Encarnacion MD [Primary Care Provider] - 1-2 Weeks Prescriptions: DiphenhydrAMINE HCL [Benadryl] 25 mg PO QID #12 cap Ondansetron HCl [Zofran] 4 mg PO TID #12 tab Pantoprazole Tablet [Protonix] 40 mg PO DAILY #10 tab Prednisone 50 mg PO DAILY #5 tab Home Medications: Ambulatory Orders Dexilant 60 mg PO DAILY 04/12/19 Fenofibrate 48 mg PO DAILY 04/12/19 Furosemide 20 mg PO QAM 04/12/19 Gabapentin 600 mg PO QID 04/12/19 Gilbert 5/325 1 tablet PO Q4HR PRN 04/12/19 Potassium Gluconate 595 mg PO DAILY 04/12/19 Albuterol Sulfate Nebs [Proventil Nebs] 2.5 mg INH PRN PRN 07/30/19 Calcium Carbonate (Antacid) [Tums] 600 mg PO PRN PRN 07/30/19 Calcium Carbonate-Vitamin D [Calcium 500 + D] 1 tab PO BID 07/30/19 Cyanocobalamin Inj [Vitamin B-12 Inj] 1,000 mcg IM MONTHLY 07/30/19 Docusate Sodium [Stool Softener] 200 mg PO PRN PRN 07/30/19 Estradiol Vaginal [Estrace] 0.1 mg VA WKLY 07/30/19 Ondansetron HCl [Zofran] 4 mg PO PRN PRN 07/30/19 Polyethylene Glycol 3350 [Miralax] 17 gm PO DAILY 07/30/19 Sumatriptan Succinate [Imitrex] 100 mg PO PRN PRN 07/30/19 Biotin 5,000 mcg SL DAILY 09/30/19 Cholecalciferol [Vitamin D3] 5,000 unit PO BID 09/30/19 Clopidogrel Bisulfate 75 mg PO DAILY 09/30/19 DiphenhydrAMINE HCL [Benadryl] 25 mg PO QID #12 cap 09/30/19 Ondansetron HCl [Zofran] 4 mg PO TID #12 tab 09/30/19 Pantoprazole Tablet [Protonix] 40 mg PO DAILY #10 tab 09/30/19 Prednisone 50 mg PO DAILY #5 tab 09/30/19 Sucralfate 1 gm PO TID 09/30/19
[2019-09-30] MEDS ORDERED: FAMOTIDINE IV PREMIX 50 ML IVPB ONE (10:53)
[2019-09-30] MEDS ORDERED: diphenhydrAMINE HCL 50 MG/ML VIAL ONE (10:54)
[2019-09-30] MEDS ORDERED: diphenhydrAMINE HCL 50 MG/ML VIAL IV ONE ×2 (11:03→23:21)
[2019-09-30] MEDS ORDERED: PANTOPRAZOLE SODIUM TAB 40 MG PO ONE (12:02)
[2019-09-30] MEDS ORDERED: methylPREDNISolone SODIUM SUC 125 MG/2 ML VIAL IV ONE (12:03)
[2019-09-30 13:34] VITALS: BP 100/54; O2SAT 95
[2019-09-30 13:35] VITALS: TEMP 98
== END 2019-09-30 13:35 | disposition home or self-care (01) ==
LOC: ER 09:20
DX: L29.9 Pruritus, unspecified (principal); T45.4X5A Adverse effect of iron and its compounds, initial encounter; K29.70 Gastritis, unspecified, without bleeding; R56.9 Unspecified convulsions; J45.909 Unspecified asthma, uncomplicated; I10 Essential (primary) hypertension; Z86.73 Personal history of transient ischemic attack (TIA), and cerebral infarction without residual deficits; Z87.891 Personal history of nicotine dependence; Z79.899 Other long term (current) drug therapy; Z88.5 Allergy status to narcotic agent; Z88.0 Allergy status to penicillin; Z88.2 Allergy status to sulfonamides; Z91.040 Latex allergy status
CPT/HCPCS: 36415; 83690; 93005; J1200; J2405; J2930; J3490

== ENCOUNTER → 2019-10-04 | Outpatient (CLI) | payer MEDICARE ==
--- NOTE | 2019-10-04 16:04 | US ---
EXAM DESCRIPTION: Renal: Ultrasound. CLINICAL HISTORY: 69 years Female CHRONIC CYSTITIS COMPARISON: None TECHNIQUE: Transcutaneous scanning: Two-dimensional and Doppler modes. FINDINGS: Right kidney measures 11.2 x 5.8 x 5.2 cm; mid-renal cortical thickness normal . Increased cortical echogenicity similar to the liver. No hydronephrosis 6.5 mm echogenic stone or focal fat in the lower pole.. Slightly lobulated contour of the kidney with no perinephric fluid. Normal vascularity. Proximal ureter not seen.. Left kidney measures 9.3 x 5.1 x 5.1 cm; mid-renal cortical thickness varies from 8 to 15 mm.. Increased echogenicity of the cortex. No hydronephrosis. 7.3 mm echogenic stone with acoustic distant shadowing. Lobulated contour of the kidney, possible defect in the lateral upper cortex, with no perinephric fluid. 8.5 x 8.6 mm anechoic cyst with well-defined preciado and acoustic distant enhancement. Normal vascularity.. Proximal. Ureter not seen. Urinary bladder was visualized. 20.4 mL. Ureteral jet in the bladder not seen by Doppler after 5 minutes interrogation Patient unable to void. Abdominal aorta: 1.6 cm proximal, 1.7 cm mid aorta and 1.7 cm distal. IMPRESSION: 1. Normal size right kidney and normal cortical thickness. Increased echogenicity similar to the liver. Lobulated capsule. 6.5 mm echogenic stone versus focal fat. No hydronephrosis or perinephric fluid. Proximal ureter not seen. 2. Left kidney appears atrophic with increased echogenicity, and at least one cortical defect suggesting old infarction or pyelonephritis. Lobulated capsule. 7.3 mm stone with acoustic shadowing. 8.6 mm cyst. Proximal ureter not seen. 3. Urinary bladder visualized but decreased volume. No intravesicular ureteral jets by color Doppler. No voiding. Abdominal aorta normal caliber. Electronically signed by: Landry Collins MD 10/04/2019 4:03 PM [employer]
== END ==
LOC: US 09:41
PROVIDERS: ATTEND Urology
DX: N30.20 Other chronic cystitis without hematuria (principal); N28.9 Disorder of kidney and ureter, unspecified; N20.0 Calculus of kidney; N28.1 Cyst of kidney, acquired

== ENCOUNTER → 2019-12-20 | Outpatient (CLI) | payer MEDICARE ==
--- NOTE | 2019-12-20 14:51 | CT ---
Study: CT Pelvis. Indication: RADICULOPATHY Technique: CT of the pelvis obtained without intravenous contrast. Coronal and sagittal reformats performed. This exam was performed according to our departmental dose-optimization program, which includes automated exposure control, adjustment of the mA and/or kV according to patient size and/or use of iterative reconstruction technique. Comparison: CT lumbar spine, same day. CT pelvis May 08, 2019. Findings: Degenerative and post surgical changes of the lumbar spine, better evaluated on the accompanying CT lumbar spine. Atherosclerosis aorta and its branches. Colonic diverticulosis. Mild anasarca throughout the pelvis. Right total hip arthroplasty partially visualized. Moderate to severe left hip osteoarthritis. Severe pubic symphysis osteoarthritis. Moderate to severe left and mild to moderate right sacroiliac joint osteoarthritis. The bones are osteopenic. Given this limitation, no acute fracture identified. Impression: No acute pelvic fracture identified, however evaluation is limited given history of osteopenia. If high clinical concern for nondisplaced fracture, correlation with MRI or bone scan recommended. Moderate to severe left hip osteoarthritis. Moderate to severe left and mild to moderate right sacroiliac joint osteoarthritis. Additional findings as above. Electronically signed by: Santy Jones MD 12/20/2019 2:50 PM CDT
--- NOTE | 2019-12-20 14:54 | CT ---
EXAM DESCRIPTION: Lumbar Spine CLINICAL HISTORY: RADICULOPATHY COMPARISON: MRI June 16, 2015 TECHNIQUE: Non contrast transaxial CT images of the lumbar spine are obtained with coronal and sagittal reconstructed images. This exam was performed according to our departmental dose-optimization program, which includes automated exposure control, adjustment of the mA and/or kV according to patient size and/or use of iterative reconstruction technique . FINDINGS: GENERAL Osseous structures are diffusely osteopenic. Moderate curvature of the upper lumbar spine with convexity towards the left centered at the L2-3 level. No loss of vertebral body height. Bilateral pedicle screw and vertical richmond fixation from L3 through L5 is seen. No hardware failure or loosening. Posterior lateral bone graft and solid fusion and facet arthrodesis from L3 through L5 is seen. L3 and L4 laminectomy changes are seen. Visualized intra-abdominal retroperitoneal structures show mild cortical thinning in the left kidney. Moderate calcific atherosclerotic disease. Moderate degenerative changes of the sacroiliac joints. Fluid in the subcutaneous soft tissue posterior to the paraspinal musculature measuring 1.9 cm transverse by 1.9 cm AP by 5.3 cm cranial caudal at the L2-L4 level is seen. T12-L1: Moderate to severe disc space narrowing and moderate vacuum disc. No spinal canal stenosis. Mild facet arthrosis. No foraminal encroachment. L1-2 Mild disc space narrowing. Mild left greater than right facet arthrosis. No spinal canal stenosis or foraminal encroachment. L2-3 Moderate disc space narrowing asymmetric towards the right with vacuum disc and sclerotic endplate changes. Right far lateral disc osteophytic ridging. Cortical to subcortical cystic changes are also seen. 3 mm broad-based disc bulge. Moderate bilateral facet hypertrophic and degenerative changes with mild widening of the right facet joint. At least mild to moderate spinal canal stenosis with moderate right lateral recess encroachment is seen. Moderate right and mild left foraminal encroachment. L3-4 Interval postsurgical changes. No spinal canal stenosis. At least mild right bony foraminal encroachment. L4-5 Interval postsurgical changes. Moderate disc space narrowing. No bony spinal canal stenosis or foraminal encroachment. L5-S1 Moderate left vacuum disc. Moderate bilateral facet hypertrophic and degenerative changes with ligamentum flavum thickening. Mild broad-based disc bulge. Mild spinal canal stenosis. Mild right and severe left foraminal encroachment. IMPRESSION: Interval postsurgical changes from L3 through L5 are seen with resolution of the previously seen spinal canal stenosis and improvement of the foraminal encroachment. Interval significant worsening of disc degenerative disease at L2-3 with levocurvature of the lumbar spine at this level, mild to moderate spinal canal stenosis, and moderate right lateral recess and foraminal encroachment. Interval worsening of disc disease and facet arthropathy at L5-S1 with continued severe left foraminal encroachment. Probable postop hematoma or seroma posterior to the paraspinal musculature from L2 through L4. Sterility of the fluid collection cannot be determined on CT imaging. Electronically signed by: Brian Brock MD 12/20/2019 2:52 PM CDT
== END ==
LOC: CT 12:27
PROVIDERS: ATTEND Psychiatry & Neurology Neurology
DX: K26.0 Acute duodenal ulcer with hemorrhage (principal); K57.30 Diverticulosis of large intestine without perforation or abscess without bleeding; M16.12 Unilateral primary osteoarthritis, left hip; M85.88 Other specified disorders of bone density and structure, other site; M47.898 Other spondylosis, sacral and sacrococcygeal region; R60.1 Generalized edema; M48.061 Spinal stenosis, lumbar region without neurogenic claudication; M51.36 Other intervertebral disc degeneration, lumbar region; M54.16 Radiculopathy, lumbar region; M79.9 Soft tissue disorder, unspecified; Z98.890 Other specified postprocedural states; Z96.641 Presence of right artificial hip joint

== ENCOUNTER → 2020-01-30 | Outpatient (CLI) | payer MEDICARE | LOC: GMAM 10:40 | PROVIDERS: ATTEND Family Medicine | DX: M19.90 Unspecified osteoarthritis, unspecified site (principal) ==

== ENCOUNTER → 2020-02-14 | Outpatient (CLI) | payer MEDICARE | LOC: GMAM 10:33 | PROVIDERS: ATTEND Family Medicine | DX: R23.3 Spontaneous ecchymoses (principal) ==

== ENCOUNTER → 2020-03-04 | Outpatient (CLI) | payer MEDICARE | LOC: GMAM 10:40 | PROVIDERS: ATTEND Family Medicine | DX: E53.8 Deficiency of other specified B group vitamins (principal); D50.9 Iron deficiency anemia, unspecified; E55.9 Vitamin D deficiency, unspecified; I10 Essential (primary) hypertension; E11.9 Type 2 diabetes mellitus without complications; E78.2 Mixed hyperlipidemia ==

== ENCOUNTER → 2020-03-20 | Outpatient (CLI) | payer MEDICARE ==
--- NOTE | 2020-03-21 13:19 | MRI ---
EXAM DESCRIPTION: Lumbar Spine w/o Contrast : Magnetic Resonance Imaging. CLINICAL HISTORY: LUMBAR RADICULOPATHY COMPARISON: Pre- fusion lumbar MRI scan June 2015. Post- fusion lumbar CT scan December 19. TECHNIQUE: Multiplanar, multiple standard sequences, non contrast MRI, lumbar spine. FINDINGS: L5-S1: The disc is well visualized on axial T2 series 501, image 3. Disc desiccation with posterior bulging and endplate reactive changes which are mild. Broad-based bulge along with hypertrophic changes in the posterior ligaments and facet joints (canal elements resulting AP canal diameter 7.2 mm. Disc bulge into the bilateral foramina more left than right with moderate to severe right foraminal narrowing and left foraminal stenosis. Evaluation of the foramina is limited due to magnetic distortion from the hardware. Posterior transpedicular fusion L3-L5 with bilateral screws at each level and unilateral connecting rods. Evaluation of the involved foramina is limited due to magnetic distortion from the hardware. No interbody fusion devices or material. Significant narrowing of the L4-5 disc space with trace anterolisthesis. Hyperintense T2 weighted annular fissure in the posterior disc remnant bulging into the canal is facet joints are partially obscured by magnetic distortion from the hardware. AP canal diameter is 10 mm at the level of the superior L5 endplate. At other levels, posterior decompression has been performed with no canal stenosis. Artifact limits evaluation of the right L3-4 foramen but appearance on this exam correlated with appearance on CT exam suggests severe narrowing versus borderline stenosis. No abnormal fluid signal around the hardware or in the canal and no soft tissue mass. Disc space is reduced at L3-L4 with trace anterolisthesis but no disc bulging. L2-L3: Disc desiccation with advanced endplate reactive changes in the midline and right of midline with disc space loss. Minimal endplate changes on the left. Posterior right and right lateral disc osteophyte complex encroaching on the canal and foramen. Moderate hypertrophic changes in the canal elements. AP canal diameter 8 mm. Mild left foraminal narrowing and borderline right neural foraminal stenosis. L1-L2: Disc space maintained and normal signal in the disc. Hypertrophic changes in the canal elements impressing on the posterior lateral thecal sac with mild canal narrowing. Bilateral foramina are patent. T12-L1: Disc desiccation and moderate disc space loss more on the left than right. Anterior mild endplate reactive changes with disc osteophyte bulge into the soft tissue. Posterior disc bulge abutting the thecal sac. Hypertrophic changes in the canal elements encroaching on the posterior lateral thecal sac. AP canal diameter 12 mm with mild right foraminal narrowing and negligible left foraminal narrowing. Conus terminates just above the disc space. L1-L4 levoscoliosis. Paravertebral soft tissues demonstrating paraspinal muscle atrophy.. Distal cord normal signal and caliber. Otherwise normal marrow signal in the remaining vertebral bodies and the posterior elements. Vertebral bodies are not compressed at any level. IMPRESSION: 1. MRI of the lumbar spine is compared to postfusion CT scan of the lumbar spine in December of this year. Posterior bilateral transpedicular spinal fusion with unilateral connecting rods and no interbody fusion L3-L5. No hardware complications. Borderline right L3-L4 foraminal stenosis, not interpreted to be a complication. This is in agreement with CT findings. Borderline mild central canal stenosis at the superior margin of the superior L5 endplate but more superior levels of the fusion site showing decompression with no canal stenosis. Annular fissure in the posterior L4-L5 disc remnant. 2. L5-S1 posterior disc osteophyte bulge as well as bulge into the bilateral foramina resulting in moderate central canal stenosis severe right foraminal narrowing and left foraminal stenosis. Evaluation of the foramina limited due to magnetic susceptibility from the hardware. 3. L2-L3 posterior spondylosis and mild to moderate multifactorial canal stenosis. Borderline right neural foraminal stenosis, correlate for right L3 radiculopathy. Electronically signed by: Landry Collins MD 03/21/2020 1:17 PM CDT
== END ==
LOC: MRI 09:00
PROVIDERS: ATTEND Psychiatry & Neurology Neurology
DX: M47.26 Other spondylosis with radiculopathy, lumbar region (principal); Z98.1 Arthrodesis status; M51.36 Other intervertebral disc degeneration, lumbar region; M48.061 Spinal stenosis, lumbar region without neurogenic claudication; M25.78 Osteophyte, vertebrae